=== PATIENT | female | born 1975 | race Caucasian/White ===

== ENCOUNTER 2016-11-18 23:26 | Emergency (ER) | payer MEDICAID ==
[2016-11-18] MEDS ORDERED: Ketorolac 30 MG/ML SDV IVPUSH ONE (23:37)
[2016-11-18] MEDS ORDERED: Ondansetron 4 MG/2 ML SDV IVPUSH ONE (23:46)
[2016-11-18] MEDS ORDERED: Sodium Chloride 0.9% 1,000 ML IV ONE (23:46)
[2016-11-18] MEDS ORDERED: LORazepam 2 MG/ML MDV IVPUSH ONE (23:54)
[2016-11-19 00:27] LABS: CHLORIDE,CL 106 mmol/L (98-110); SODIUM,NA 139 mmol/L (136-146)
--- NOTE | 2016-11-19 01:53 | EDM.PDOC ---
ED HPI GENERAL MEDICAL PROBLEM - General Chief Complaint: Flank Pain Stated Complaint: PT LT SIDE HURT AND VOMITING Time Seen by Provider: 11/18/16 23:35 Source of Information: Reports: Patient History Limitations: Reports: No Limitations - History of Present Illness INITIAL COMMENTS - FREE TEXT/NARRATIVE: HISTORY AND PHYSICAL: History of present illness: 40-year-old female with no prior history of kidney stones now presents to the emergency department complaining of sudden onset of severe left flank pain tonight. Patient was feeling fine less than which went to bed. She woke with severe left flank discomfort. She has nonominal or pelvic pain. No vaginal discharge or bleeding. Denies possibility of . No fevers chills sweats or shaking chills. Pain comes and goes sometimes is very severe. No position helps it or makes it worse. Review of systems: As per history of present illness and below otherwise all systems reviewed and negative. Past medical history: As per history of present illness and as reviewed below otherwise noncontributory. Surgical history: As per history of present illness and as reviewed below otherwise noncontributory. Social history: No reported history of drug or alcohol abuse. Family history: As per history of present illness and as reviewed below otherwise noncontributory. Physical exam: HEENT: Atraumatic, normocephalic, pupils reactive, negative for conjunctival pallor or scleral icterus, mucous membranes moist, throat clear, neck supple, nontender, trachea midline. Lungs: Clear to auscultation, breath sounds equal bilaterally, chest nontender. Heart: S1S2, regular, negative for clicks, rubs, or JVD. Abdomen: Soft, nondistended, nontender. Negative for masses or hepatosplenomegaly. positive left sidedcostovertebral tenderness.right CVA nontender 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: Deferred. Rectal: Deferred. Extremities: Atraumatic, negative for cords or calf pain. Neurovascular unremarkable. Neuro: Awake, alert, oriented. Cranial nerves II through XII unremarkable. Cerebellum unremarkable. Motor and sensory unremarkable throughout. Exam nonfocal. Diagnostics: [CT with stone left mid ureter mild hydro-. Labs with no evidence of Elisa infection Therapeutics: [] Impression: [] Plan: [signs and symptoms consistent with ureteral colic confirmed by CT. Labs unremarkable. Patient comfortable on reevaluation prior to discharge. No further workup or treatment indicated. Patient and agree with outpatient follow-up with urology. Patient is aware that this could possibly the stone will not pass spontaneously and may require urologic intervention. Her at length the potential, if she is noncompliant and does not follow-up, for loss of kidney function up to and including devitalization and lossof her left kidney from chronic hydro. strict return precautions given] Definitive disposition and diagnosis as appropriate pending reevaluation and review of above. left flank area Pain Score (Numeric/FACES): 10 - Related Data Allergies Allergy/AdvReac Type Severity Reaction Status Date / Time No Known Allergies Allergy Verified 11/18/16 23:35 Home Meds: Home Meds Tamsulosin HCl [Flomax] 0.4 mg PO DAILY #10 cap.er.24h 11/19/16 [Rx] Past Medical History HEENT History: Reports: None Cardiovascular History: Reports: None Respiratory History: Reports: None Gastrointestinal History: Reports: None 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 History: Reports: None H[employer] History: Reports: Musculoskeletal History: Reports: None Neurological History: Reports: None Psychiatric History: Reports: None Endocrine/Metabolic History: Reports: Diabetes, Type II Hematologic History: Reports: None Immunologic History: Reports: None Oncologic (Cancer) History: Reports: None Dermatologic History: Reports: None - Infectious Disease History Infectious Disease History: Reports: None Social & Family History - Family History Family Medical History: Noncontributory - Tobacco Use Smoking Status *Q: Never Smoker - Caffeine Use Caffeine Use: Reports: Soda - Recreational Drug Use Recreational Drug Use: No ED ROS GENERAL - Review of Systems Review Of Systems: See Below (history of present illness) ED EXAM, GENERAL - Physical Exam Exam: See Below (history of present illness) Course - Vital Signs Last Recorded V/S: Last Vital Signs Temp 36.2 C 11/19/16 02:24 Pulse 60 11/19/16 02:24 Resp 18 11/19/16 02:24 BP 100/60 11/19/16 02:24 Pulse Ox 97 11/19/16 02:24 - Orders/Labs/Meds Orders: Active Orders 24 hr Category Date Time Status Abdomen Pelvis wo Cont [CT] Stat Exams 11/18/16 23:37 Ordered Labs: Laboratory Tests 11/18/16 11/18/16 11/18/16 Range/Units 23:46 23:46 23:46 WBC 10.09 (4.0-11.0) K/uL RBC 4.56 (4.30-5.90) M/uL Hgb 13.2 (12.0-16.0) g/dL Hct 39.1 (36.0-46.0) % MCV 85.7 (80.0-98.0) fL MCH 28.9 (27.0-32.0) pg MCHC 33.8 (31.0-37.0) g/dL RDW Std Deviation 39.2 (28.0-62.0) fl RDW Coeff of Ibeth 13 (11.0-15.0) % Plt Count 274 (150-400) K/uL MPV 10.20 (7.40-12.00) fL Neut % (Auto) 58.1 (48.0-80.0) % Lymph % (Auto) 33.0 (16.0-40.0) % [place] % (Auto) 6.3 (0.0-15.0) % Eos % (Auto) 2.3 (0.0-7.0) % Baso % (Auto) 0.3 (0.0-1.5) % Neut # (Auto) 5.9 H (1.4-5.7) K/uL Lymph # (Auto) 3.3 H (0.6-2.4) K/uL [place] # (Auto) 0.6 (0.0-0.8) K/uL Eos # (Auto) 0.2 (0.0-0.7) K/uL Baso # (Auto) 0.0 (0.0-0.1) K/uL Nucleated RBC % 0.0 /100WBC Nucleated RBCs # 0 K/uL Sodium 139 (136-146) mmol/L Potassium 3.8 (3.5-5.1) mmol/L Chloride 106 (98-110) mmol/L Carbon Dioxide 23 (21-31) mmol/L BUN 10 (6.0-23.0) mg/dL Creatinine 1.0 (0.6-1.5) mg/dL Est Cr Clr Drug Dosing 63.28 mL/min Estimated GFR (MDRD) > 60.0 ml/min Glucose 123 H (60-110) mg/dL Calcium 9.5 (8.8-10.8) mg/dL Total Bilirubin 0.4 (0.1-1.5) mg/dL AST 20 (5-40) IU/L ALT 21 (8-54) IU/L Alkaline Phosphatase 75 (40-150) Total Protein 7.6 (6.0-8.0) g/dL Albumin 3.9 (3.5-5.0) g/dL Globulin 3.7 H (2.0-3.5) g/dL Albumin/Globulin Ratio 1.1 L (1.3-2.8) Lipase 17 (7-80) U/L HCG, Qual (NEG) Urine Color Urine Appearance Urine pH (5.0-8.0) Ur Specific [place] (1.001-1.035) Urine Protein (NEGATIVE) mg/dL Urine Glucose (UA) (NEGATIVE) mg/dL Urine Ketones (NEGATIVE) mg/dL Urine Occult Blood (NEGATIVE) Urine Nitrite (NEGATIVE) Urine Bilirubin (NEGATIVE) Urine Urobilinogen (<2.0) EU/dL Ur Leukocyte Esterase (NEGATIVE) Urine RBC (0-2/HPF) Urine WBC (0-5/HPF) Ur Epithelial Cells (NONE-FEW) Urine Bacteria (NEGATIVE) Urine Mucus (NONE-MOD) 11/18/16 11/19/16 Range/Units 23:46 01:55 WBC (4.0-11.0) K/uL RBC (4.30-5.90) M/uL Hgb (12.0-16.0) g/dL Hct (36.0-46.0) % MCV (80.0-98.0) fL MCH (27.0-32.0) pg MCHC (31.0-37.0) g/dL RDW Std Deviation (28.0-62.0) fl RDW Coeff of Ibeth (11.0-15.0) % Plt Count (150-400) K/uL MPV (7.40-12.00) fL Neut % (Auto) (48.0-80.0) % Lymph % (Auto) (16.0-40.0) % [place] % (Auto) (0.0-15.0) % Eos % (Auto) (0.0-7.0) % Baso % (Auto) (0.0-1.5) % Neut # (Auto) (1.4-5.7) K/uL Lymph # (Auto) (0.6-2.4) K/uL [place] # (Auto) (0.0-0.8) K/uL Eos # (Auto) (0.0-0.7) K/uL Baso # (Auto) (0.0-0.1) K/uL Nucleated RBC % /100WBC Nucleated RBCs # K/uL Sodium (136-146) mmol/L Potassium (3.5-5.1) mmol/L Chloride (98-110) mmol/L Carbon Dioxide (21-31) mmol/L BUN (6.0-23.0) mg/dL Creatinine (0.6-1.5) mg/dL Est Cr Clr Drug Dosing mL/min Estimated GFR (MDRD) ml/min Glucose (60-110) mg/dL Calcium (8.8-10.8) mg/dL Total Bilirubin (0.1-1.5) mg/dL AST (5-40) IU/L ALT (8-54) IU/L Alkaline Phosphatase (40-150) Total Protein (6.0-8.0) g/dL Albumin (3.5-5.0) g/dL Globulin (2.0-3.5) g/dL Albumin/Globulin Ratio (1.3-2.8) Lipase (7-80) U/L HCG, Qual NEGATIVE (NEG) Urine Color YELLOW Urine Appearance CLEAR Urine pH 6.0 (5.0-8.0) Ur Specific [place] 1.020 (1.001-1.035) Urine Protein TRACE (NEGATIVE) mg/dL Urine Glucose (UA) NEGATIVE (NEGATIVE) mg/dL Urine Ketones NEGATIVE (NEGATIVE) mg/dL Urine Occult Blood LARGE H (NEGATIVE) Urine Nitrite NEGATIVE (NEGATIVE) Urine Bilirubin NEGATIVE (NEGATIVE) Urine Urobilinogen 0.2 (<2.0) EU/dL Ur Leukocyte Esterase MODERATE (NEGATIVE) Urine RBC 16-20 (0-2/HPF) Urine WBC 2-4 (0-5/HPF) Ur Epithelial Cells RARE (NONE-FEW) Urine Bacteria RARE (NEGATIVE) Urine Mucus LIGHT (NONE-MOD) Meds: Medications Discontinued Medications Generic Name Dose Route Start Last Admin Trade Name Freq PRN Reason Stop Dose Admin Sodium Chloride 1,000 mls @ 999 mls/hr 11/18/16 23:46 11/18/16 23:50 Normal Saline IV 11/19/16 00:46 999 mls/hr .Bolus ONE Administration Ketorolac Tromethamine 30 mg 11/18/16 23:37 11/18/16 23:52 Toradol IVPUSH 11/18/16 23:38 30 mg ONETIME ONE Administration Lorazepam 1 mg 11/18/16 23:54 11/19/16 00:04 Ativan IVPUSH 11/18/16 23:55 1 mg ONETIME ONE Administration Ondansetron HCl 4 mg 11/18/16 23:46 11/18/16 23:50 Zofran IVPUSH 11/18/16 23:47 4 mg ONETIME ONE Administration Departure - Departure Time of Disposition: 02:30 Disposition: Home, Self-Care 01 Clinical Impression: Ureterolithiasis, Ureteric colic - Discharge Information Prescriptions: Tamsulosin HCl [Flomax] 0.4 mg PO DAILY #10 cap.er.24h Instructions: Kidney Stones, Bnmf-hi-Selt Referrals: PCP,None [Primary Care Provider] - Forms: ED Department Discharge - My Orders Last 24 Hours: My Active Orders 11/18/16 23:37 Abdomen Pelvis wo Cont [CT] Stat - Assessment/Plan Last 24 Hours: My Active Orders 11/18/16 23:37 Abdomen Pelvis wo Cont [CT] Stat
[2016-11-19 02:25] VITALS: BP 100/60
--- NOTE | 2016-11-19 19:19 | CT ---
EXAM DATE: 11/18/16 PATIENT'S AGE: 40 Patient: MONIKA VELA Facility: [place], [place] Site . Site : 1975 Study: CT Abdomen/Pelvis [id number]/[id number] 1:07:10 AM Ordering Physician: tavo Final Report: : INDICATION: left flank pain CT ABDOMEN AND PELVIS WITHOUT CONTRAST TECHNIQUE: Multidetector CT imaging was performed through the abdomen and pelvis without intravenous contrast administration. Coronal and sagittal reconstructions were generated. COMPARISON: None. FINDINGS: Lower chest: Lung bases are clear. Liver: Within normal limits. Gallbladder and bile ducts: 2.3 centimeter calcified gallstone within the gallbladder fundus. No findings to suggest cholecystitis. No biliary dilation identified. Pancreas: Unremarkable. Spleen: Normal. Adrenals: No nodules or masses. Kidneys, ureters, and urinary bladder: 6 x 3 x 4 millimeter stone in the mid to distal portion of the left ureter at the level of the sacral promontory approximately 7 centimeters above the ureterovesical junction, producing mild dilation of the proximal left ureter and mild left hydronephrosis. A few small nonobstructing right intrarenal stones are also noted. No bladder mass or definite wall thickening. Gastrointestinal tract: Normal caliber bowel without wall thickening. The appendix is normal. Vascular structures: Normal for age. Peritoneum: No free air, abscess, or significant free fluid. Lymph nodes: No pathologically enlarged nodes identified. Reproductive organs: Borderline uterine enlargement, possibly reflecting the presence of fibroids; consider followup pelvic ultrasound. Bones: Normal for age. IMPRESSION: 1. Obstructing 6 x 3 x 4 millimeter stone in the mid to distal left ureter producing mild left hydroureteronephrosis. 2. Small nonobstructing right intrarenal stones. 3. Nonacute additional findings as detailed above. AYSE HOANG MD [facility] [employer] Dictated by Gael Hoang MD @ 11/19/2016 1:14:53 AM Dictated by: Gael Hoang MD @ 11/19/2016 01:15:04 (Electronic Signature) Report Signed by Proxy. GARNET HEALTHPriscila
== END 2016-11-19 02:24 | disposition home or self-care (01) ==
LOC: MW.ED 23:26
DX: N13.2 Hydronephrosis with renal and ureteral calculous obstruction (principal); E11.9 Type 2 diabetes mellitus without complications
CPT/HCPCS: 36415; 74176; 80053; 81001; 83690; 84703; 85025; 96361; 96374; 96375; 99284; J1885; J2060; J2405; J7040

== ENCOUNTER 2016-11-26 07:39 | Day surgery (SDC) | payer MEDICAID ==
[~2016-11-26 07:39] MED LIST: Iopamidol 408 MG/ML 50 ML SDV ONE; Lactated Ringers 1,000 ML IV SCH; ceFAZolin 1 GM in Premix Bag 1 BAG IV ONE
[2016-11-26] MEDS ORDERED: Propofol 200 MG/20 ML SDV ONE (07:40)
[2016-11-26] MEDS ORDERED: fentaNYL 100 MCG/2 ML SDV ONE ×2 (07:41→09:58)
[2016-11-26] MEDS ORDERED: Midazolam 1 MG/ML 2 ML SDV ONE (07:41)
[2016-11-26] MEDS ORDERED: ceFAZolin 1 GM Vial ONE (07:42)
[2016-11-26] MEDS ORDERED: Neostigmine Methylsulfate 1 MG/ML 5 ML Syringe ONE (07:42)
[2016-11-26] MEDS ORDERED: Dexamethasone 4 MG/ML 5 ML MDV ONE (07:42)
[2016-11-26] MEDS ORDERED: Rocuronium 10 MG/ML 10 ML Syringe ONE (07:42)
[2016-11-26] MEDS ORDERED: Ondansetron 4 MG/2 ML SDV ONE (07:42)
--- NOTE | 2016-11-26 08:34 | PCM.PREANE ---
Preanesthetic Assessment - Anesthesia/Transfusion/Family Hx Anesthesia History: No Prior Anesthesia Family History of Anesthesia Reaction: No Transfusion History: No Prior Transfusion(s) - Review of Systems General: No Symptoms Pulmonary: No Symptoms Cardiovascular: No Symptoms Gastrointestinal: No Symptoms Neurological: No Symptoms Other: Reports: None - Physical Assessment NPO Status Date: 11/25/16 NPO Status Time: 22:30 O2 Sat by Pulse Oximetry: 98 Respiratory Rate: 16 Vital Signs: Last Vital Signs Temp 36.6 C 11/26/16 07:45 Pulse 68 11/26/16 07:45 Resp 16 11/26/16 07:45 BP 113/71 11/26/16 07:45 Pulse Ox 98 11/26/16 07:45 Height: 1.63 m Weight: 87.997 kg ASA Class: 2 Mental Status: Alert & Oriented x3 Airway Class: Mallampati = 2 Dentition: Reports: Broken Tooth/Teeth, Caries ROM/Head Extension: Full Lungs: Clear to Auscultation, Normal Respiratory Effort Cardiovascular: Regular Rate, Regular Rhythm - Allergies Allergies/Adverse Reactions: Allergies Allergy/AdvReac Type Severity Reaction Status Date / Time No Known Allergies Allergy Verified 11/18/16 23:35 - Anesthesia Plan Pre-Op Medication Ordered: None - Acknowledgements Anesthesia Type Planned: General Anesthesia Pt an Appropriate Candidate for the Planned Anesthesia: Yes Alternatives and Risks of Anesthesia Discussed w Pt/Guardian: Yes Pt/Guardian Understands and Agrees with Anesthesia Plan: Yes PreAnesthesia Questionnaire HEENT History: Reports: None Cardiovascular History: Reports: None Respiratory History: Reports: None Gastrointestinal History: Reports: Cholelithiasis 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 History: Reports: Renal Calculus 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 History: currently [employer] History: Reports: Musculoskeletal History: Reports: None Neurological History: Reports: Migraines Psychiatric History: Reports: None Endocrine/Metabolic History: Reports: Diabetes, Type II Hematologic History: Reports: None Immunologic History: Reports: None Oncologic (Cancer) History: Reports: None Dermatologic History: Reports: None - Infectious Disease History Infectious Disease History: Reports: None - Past Surgical History GI Surgical History: Reports: None Female Surgical History: Reports: None - SUBSTANCE USE Smoking Status *Q: Never Smoker Recreational Drug Use History: No - HOME MEDS Home Medications: Home Meds Tamsulosin HCl [Flomax] 0.4 mg PO DAILY #10 cap.er.24h 11/19/16 [Rx] Acetaminophen with Codeine [Tylenol with Codeine #3 Tablet] 1 tab PO Q6H PRN 02/01 [History] Acetaminophen/HYDROcodone [[place] 325-5 MG] 1 tab PO ASDIRECTED PRN 11/25/16 [ History] Metoclopramide [Reglan] 10 mg PO ASDIRECTED PRN 11/25/16 [History] Norethindrone-E.estradiol-Iron [Junel Fe 1 MG-20 MCG] 1 tab PO ASDIRECTED [History] SUMAtriptan Succinate [Imitrex] 100 mg PO ASDIRECTED PRN 11/25/16 [History] metFORMIN HCl [Metformin HCl] 1,000 mg PO BID 11/25/16 [History] metroNIDAZOLE [Flagyl] 500 mg PO ASDIRECTED 11/25/16 [History] - CURRENT (IN HOUSE) MEDS Current Meds: Current Medications Lactated Ringer's (Ringers, Lactated) 1,000 mls @ 100 mls/hr IV ASDIRECTED STEPHANIE Last Admin: 11/26/16 08:03 Dose: 100 mls/hr Discontinued Medications Cefazolin Sodium (Ancef) Confirm Administered Dose 1 gm .ROUTE .STK-MED ONE Stop: 11/26/16 07:43 Dexamethasone (Dexamethasone) Confirm Administered Dose 20 mg .ROUTE .STK-MED ONE Stop: 11/26/16 07:43 Fentanyl (Sublimaze) Confirm Administered Dose 100 mcg .ROUTE .STK-MED ONE Stop: 11/26/16 07:42 Glycopyrrolate () Confirm Administered Dose 1 mg .ROUTE .STK-MED ONE Stop: 11/26/16 07:43 Cefazolin Sodium/Dextrose 1 gm (/ Premix) 50 mls @ 100 mls/hr IV ONCALL ONE Stop: 11/26/16 07:29 Iopamidol (Isovue-200 (41%)) Confirm Administered Dose 50 ml .ROUTE .STK-MED ONE Stop: 11/26/16 07:31 Lidocaine HCl (Xylocaine-Mpf 1%) Confirm Administered Dose 5 ml .ROUTE .STK-MED ONE Stop: 11/26/16 07:43 Midazolam HCl (Versed 1 Mg/Ml) Confirm Administered Dose 2 mg .ROUTE .STK-MED ONE Stop: 11/26/16 07:42 Neostigmine Methylsulfate (Neostigmine) Confirm Administered Dose 5 mg .ROUTE .STK-MED ONE Stop: 11/26/16 07:43 Ondansetron HCl (Zofran) Confirm Administered Dose 4 mg .ROUTE .STK-MED ONE Stop: 11/26/16 07:43 Propofol (Diprivan 20 Ml) Confirm Administered Dose 200 mg .ROUTE .STK-MED ONE Stop: 11/26/16 07:41 Rocuronium [place] (Zemuron) Confirm Administered Dose 100 mg .ROUTE .STK-MED ONE Stop: 11/26/16 07:43
[2016-11-26] MEDS ORDERED: Ketorolac 30 MG/ML SDV ONE (09:37)
--- NOTE | 2016-11-26 10:40 | OR ---
SURGEON: Oren Fernandez M.D. DATE OF PROCEDURE: 11/26/2016 PREOPERATIVE DIAGNOSIS: Left lower ureteral stone, 6 mm. POSTOPERATIVE DIAGNOSIS: Left lower ureteral stone, 6 mm. OPERATION: Ureteroscopy, laser lithotripsy, and stent placement. DESCRIPTION OF PROCEDURE: The patient was given general anesthesia, placed in dorsal lithotomy position, prepped and draped in sterile drapes. Cystourethroscopy was done that was normal. She had a grade 1 cystocele. The inside of the bladder was normal. A guidewire was advanced in the left ureter alongside the stone all the way up into the renal pelvis. Lower ureter was then dilated using the UroMax II balloon dilator to approximately 15-Stateless. The rigid Storz ureteroscope was advanced in the left lower ureter. The stone was visualized and dusted into a smaller size that was eventually removed with a grasper using the laser. With that done, the procedure was done. A 6-Stateless 26 cm double-J stent was advanced over the guidewire all the way up into the renal pelvis. Position was confirmed under fluoroscopy, the bladder was emptied, and the string at the end of the stent was taped to the outside to the inside of the left thigh. The patient tolerated the procedure well and was moved to recovery room in good condition. I will be seeing her in the office in 10 days to remove the stent. KATTY / MICHAEL /[id number]
[2016-11-26 11:46] VITALS: BP 150/82
--- NOTE | 2016-11-26 12:55 | CR ---
Procedure all fluoroscopy 21.4 seconds of fluoroscopy time was used for ureteroscopy and laser procedure. Impression: Procedural fluoroscopy as above
--- NOTE | 2016-11-26 14:00 | PCM.POSTAN ---
POST ANESTHESIA ASSESSMENT - MENTAL STATUS Mental Status: Alert, Oriented - RESPIRATORY Respiratory Status: Respiratory Rate WNL, Airway Patent, O2 Saturation Stable - CARDIOVASCULAR CV Status: Pulse Rate WNL, Blood Pressure Stable - GASTROINTESTINAL GI Status: No Symptoms - POST OP HYDRATION Hydration Status: Adequate & Stable
--- NOTE | 2016-11-26 14:01 | PCM48HPAN ---
Post Anesthesia Note - EVALUATION WITHIN 48HRS OF ANESTHETIC Vital Signs in Normal Range: Yes Patient Participated in Evaluation: Yes Respiratory Function Stable: Yes Airway Patent: Yes Cardiovascular Function Stable: Yes Hydration Status Stable: Yes Pain Control Satisfactory: Yes Nausea and Vomiting Control Satisfactory: Yes Mental Status Recovered: Yes
== END 2016-11-26 11:40 | disposition home or self-care (01) ==
LOC: MW.SDS 07:39
PROVIDERS: ATTEND Urology
PROC: 0TF78ZZ Fragmentation in Left Ureter, Via Natural or Artificial Opening Endoscopic (ICD-10-PCS; principal; 2016-11-26)
PROC: 0T778DZ Dilation of Left Ureter with Intraluminal Device, Via Natural or Artificial Opening Endoscopic (ICD-10-PCS; 2016-11-26)
DX: N20.1 Calculus of ureter (principal); E11.9 Type 2 diabetes mellitus without complications; G43.909 Migraine, unspecified, not intractable, without status migrainosus; Z87.442 Personal history of urinary calculi; Z79.84 Long term (current) use of oral hypoglycemic drugs; Z79.899 Other long term (current) drug therapy
CPT/HCPCS: 36415; 52356; 76000; 84703; J0690; J1100; J1885; J2250; J2405; J3010; J7120; Q9966; 00873; 82962; 88300; C1769; C2625; J2704

== ENCOUNTER 2016-11-26 23:49 | Emergency (ER) | payer MEDICAID ==
[2016-11-27] MEDS ORDERED: Sodium Chloride 0.9% 1,000 ML IV ONE ×2 (00:06→01:45)
[2016-11-27] MEDS ORDERED: Ketorolac 30 MG/ML SDV IVPUSH ONE (00:06)
[2016-11-27] MEDS ORDERED: Ondansetron 4 MG/2 ML SDV IVPUSH ONE (00:06)
--- NOTE | 2016-11-27 00:15 | EDM.PDOC ---
ED HPI GENERAL MEDICAL PROBLEM - General Chief Complaint: Abdominal Pain Stated Complaint: POST OP PAIN Time Seen by Provider: 11/27/16 00:15 Source of Information: Reports: Patient - History of Present Illness INITIAL COMMENTS - FREE TEXT/NARRATIVE: HISTORY AND PHYSICAL: History of present illness: []Patient was in for lithotripsy with Dr. Alcantar today, she complains of low back pain and dysuria, she taken hydrocodone at home as well as multilevel Tylenol No. 3 is without benefit I can reproduce pain on exam with palpation of left paraspinous muscle lumbar distribution no vertebral point tenderness no CVA tenderness No fever nausea vomiting chills sweats no chest pain shortness breath headache dizziness palpitation no bowel or urine symptoms no actual abdominal pain Review of systems: As per history of present illness and below otherwise all systems reviewed and negative. Past medical history: As per history of present illness and as reviewed below otherwise noncontributory. Surgical history: As per history of present illness and as reviewed below otherwise noncontributory. Social history: No reported history of drug or alcohol abuse. Family history: As per history of present illness and as reviewed below otherwise noncontributory. Physical exam: HEENT: Atraumatic, normocephalic, pupils reactive, negative for conjunctival pallor or scleral icterus, mucous membranes moist, throat clear, neck supple, nontender, trachea midline. Lungs: Clear to auscultation, breath sounds equal bilaterally, chest nontender. Heart: S1S2, regular, negative for clicks, rubs, or JVD. Abdomen: Soft, nondistended, nontender. Negative for masses or hepatosplenomegaly. Negative for costovertebral tenderness. Pelvis: Stable nontender. 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: Deferred. Rectal: Deferred. Extremities: Atraumatic, negative for cords or calf pain. Neurovascular unremarkable. Neuro: Awake, alert, oriented. Cranial nerves II through XII unremarkable. Cerebellum unremarkable. Motor and sensory unremarkable throughout. Exam nonfocal. Diagnostics: []Lab as below Therapeutics: []2 L normal saline bolus Toradol 30 mg IV Impression: []Paraspinous muscle spasm Post lithotripsy and stent placement on left 24 hours prior Dysuria Definitive disposition and diagnosis as appropriate pending reevaluation and review of above. back pain Pain Score (Numeric/FACES): 10 - Related Data Allergies Allergy/AdvReac Type Severity Reaction Status Date / Time No Known Allergies Allergy Verified 11/27/16 00:09 Home Meds: Home Meds Tamsulosin HCl [Flomax] 0.4 mg PO DAILY #10 cap.er.24h 11/19/16 [Rx] Acetaminophen with Codeine [Tylenol with Codeine #3 Tablet] 1 tab PO Q6H PRN 02/01 [History] Acetaminophen/HYDROcodone [Brooks 325-5 MG] 1 tab PO ASDIRECTED PRN 11/25/16 [ History] Metoclopramide [Reglan] 10 mg PO ASDIRECTED PRN 11/25/16 [History] Norethindrone-E.estradiol-Iron [Junel Fe 1 MG-20 MCG] 1 tab PO ASDIRECTED [History] SUMAtriptan Succinate [Imitrex] 100 mg PO ASDIRECTED PRN 11/25/16 [History] metFORMIN HCl [Metformin HCl] 1,000 mg PO BID 11/25/16 [History] metroNIDAZOLE [Flagyl] 500 mg PO ASDIRECTED 11/25/16 [History] Past Medical History HEENT History: Reports: None Cardiovascular History: Reports: None Respiratory History: Reports: None Gastrointestinal History: Reports: Cholelithiasis 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 History: Reports: Renal Calculus 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: Musculoskeletal History: Reports: None Neurological History: Reports: Migraines Psychiatric History: Reports: None Endocrine/Metabolic History: Reports: Diabetes, Type II Hematologic History: Reports: None Immunologic History: Reports: None Oncologic (Cancer) History: Reports: None Dermatologic History: Reports: None - Infectious Disease History Infectious Disease History: Reports: None - Past Surgical History GI Surgical History: Reports: None Female Surgical History: Reports: None Social & Family History - Family History Family Medical History: Noncontributory - Tobacco Use Smoking Status *Q: Never Smoker - Caffeine Use Caffeine Use: Reports: None, Soda - Recreational Drug Use Recreational Drug Use: No Drug Use in Last 12 Months: No ED ROS GENERAL - Review of Systems Review Of Systems: ROS reveals no pertinent complaints other than HPI. ED EXAM, GENERAL - Physical Exam Exam: See Below Course - Vital Signs Last Recorded V/S: Last Vital Signs Temp 36.4 C 11/27/16 00:09 Pulse 72 11/27/16 01:55 Resp 14 11/27/16 01:55 BP 126/71 11/27/16 01:55 Pulse Ox 99 11/27/16 01:55 - Orders/Labs/Meds Orders: Active Orders 24 hr Category Date Time Status CULTURE URINE [RM] Stat Lab 11/27/16 03:18 Uncollected Labs: Laboratory Tests 11/27/16 11/27/16 11/27/16 Range/Units 00:55 00:55 00:55 WBC 14.70 H (4.0-11.0) K/uL RBC 4.79 (4.30-5.90) M/uL Hgb 14.2 (12.0-16.0) g/dL Hct 41.3 (36.0-46.0) % MCV 86.2 (80.0-98.0) fL MCH 29.6 (27.0-32.0) pg MCHC 34.4 (31.0-37.0) g/dL RDW Std Deviation 40.1 (28.0-62.0) fl RDW Coeff of Ibeth 13 (11.0-15.0) % Plt Count 326 (150-400) K/uL MPV 10.50 (7.40-12.00) fL Neut % (Auto) 81.0 H (48.0-80.0) % Lymph % (Auto) 14.3 L (16.0-40.0) % [place] % (Auto) 4.6 (0.0-15.0) % Eos % (Auto) 0.0 (0.0-7.0) % Baso % (Auto) 0.1 (0.0-1.5) % Neut # (Auto) 11.9 H (1.4-5.7) K/uL Lymph # (Auto) 2.1 (0.6-2.4) K/uL [place] # (Auto) 0.7 (0.0-0.8) K/uL Eos # (Auto) 0.0 (0.0-0.7) K/uL Baso # (Auto) 0.0 (0.0-0.1) K/uL Nucleated RBC % 0.0 /100WBC Nucleated RBCs # 0 K/uL Sodium 138 (136-146) mmol/L Potassium 4.4 (3.5-5.1) mmol/L Chloride 105 (98-110) mmol/L Carbon Dioxide 22 (21-31) mmol/L BUN 8 (6.0-23.0) mg/dL Creatinine 0.8 (0.6-1.5) mg/dL Est Cr Clr Drug Dosing 79.11 mL/min Estimated GFR (MDRD) > 60.0 ml/min Glucose 143 H (60-110) mg/dL Calcium 9.3 (8.8-10.8) mg/dL Total Bilirubin 0.5 (0.1-1.5) mg/dL AST 23 (5-40) IU/L ALT 25 (8-54) IU/L Alkaline Phosphatase 80 (40-150) Troponin I < 0.10 (0.0-0.29) NG/ML Total Protein 7.8 (6.0-8.0) g/dL Albumin 4.0 (3.5-5.0) g/dL Globulin 3.8 H (2.0-3.5) g/dL Albumin/Globulin Ratio 1.1 L (1.3-2.8) Amylase 38 (10-90) U/L Lipase 10 (7-80) U/L Urine Color Urine Appearance Urine pH (5.0-8.0) Ur Specific [place] (1.001-1.035) Urine Protein (NEGATIVE) mg/dL Urine Glucose (UA) (NEGATIVE) mg/dL Urine Ketones (NEGATIVE) mg/dL Urine Occult Blood (NEGATIVE) Urine Nitrite (NEGATIVE) Urine Bilirubin (NEGATIVE) Urine Urobilinogen (<2.0) EU/dL Ur Leukocyte Esterase (NEGATIVE) Urine RBC (0-2/HPF) Urine WBC (0-5/HPF) Ur Epithelial Cells (NONE-FEW) Urine Bacteria (NEGATIVE) Urine Mucus (NONE-MOD) 11/27/16 Range/Units 02:40 WBC (4.0-11.0) K/uL RBC (4.30-5.90) M/uL Hgb (12.0-16.0) g/dL Hct (36.0-46.0) % MCV (80.0-98.0) fL MCH (27.0-32.0) pg MCHC (31.0-37.0) g/dL RDW Std Deviation (28.0-62.0) fl RDW Coeff of Ibeth (11.0-15.0) % Plt Count (150-400) K/uL MPV (7.40-12.00) fL Neut % (Auto) (48.0-80.0) % Lymph % (Auto) (16.0-40.0) % [place] % (Auto) (0.0-15.0) % Eos % (Auto) (0.0-7.0) % Baso % (Auto) (0.0-1.5) % Neut # (Auto) (1.4-5.7) K/uL Lymph # (Auto) (0.6-2.4) K/uL [place] # (Auto) (0.0-0.8) K/uL Eos # (Auto) (0.0-0.7) K/uL Baso # (Auto) (0.0-0.1) K/uL Nucleated RBC % /100WBC Nucleated RBCs # K/uL Sodium (136-146) mmol/L Potassium (3.5-5.1) mmol/L Chloride (98-110) mmol/L Carbon Dioxide (21-31) mmol/L BUN (6.0-23.0) mg/dL Creatinine (0.6-1.5) mg/dL Est Cr Clr Drug Dosing mL/min Estimated GFR (MDRD) ml/min Glucose (60-110) mg/dL Calcium (8.8-10.8) mg/dL Total Bilirubin (0.1-1.5) mg/dL AST (5-40) IU/L ALT (8-54) IU/L Alkaline Phosphatase (40-150) Troponin I (0.0-0.29) NG/ML Total Protein (6.0-8.0) g/dL Albumin (3.5-5.0) g/dL Globulin (2.0-3.5) g/dL Albumin/Globulin Ratio (1.3-2.8) Amylase (10-90) U/L Lipase (7-80) U/L Urine Color YELLOW Urine Appearance SLT CLOUDY Urine pH 6.5 (5.0-8.0) Ur Specific [place] 1.025 (1.001-1.035) Urine Protein 30 (NEGATIVE) mg/dL Urine Glucose (UA) NEGATIVE (NEGATIVE) mg/dL Urine Ketones NEGATIVE (NEGATIVE) mg/dL Urine Occult Blood LARGE H (NEGATIVE) Urine Nitrite NEGATIVE (NEGATIVE) Urine Bilirubin NEGATIVE (NEGATIVE) Urine Urobilinogen 0.2 (<2.0) EU/dL Ur Leukocyte Esterase SMALL (NEGATIVE) Urine RBC 250-300 (0-2/HPF) Urine WBC 4-12 (0-5/HPF) Ur Epithelial Cells OCCASIONAL (NONE-FEW) Urine Bacteria FEW (NEGATIVE) Urine Mucus FEW (NONE-MOD) Meds: Medications Discontinued Medications Generic Name Dose Route Start Last Admin Trade Name Freq PRN Reason Stop Dose Admin Sodium Chloride 1,000 mls @ 999 mls/hr 11/27/16 00:06 11/27/16 00:50 Normal Saline IV 11/27/16 01:06 999 mls/hr STAT ONE Administration Sodium Chloride 1,000 mls @ 999 mls/hr 11/27/16 01:45 11/27/16 01:56 Normal Saline IV 11/27/16 02:45 999 mls/hr STAT ONE Administration Ketorolac Tromethamine 30 mg 11/27/16 00:06 11/27/16 00:53 Toradol IVPUSH 11/27/16 00:07 30 mg ONETIME ONE Administration Ondansetron HCl 8 mg 11/27/16 00:06 11/27/16 00:51 Zofran IVPUSH 11/27/16 00:07 8 mg ONETIME ONE Administration Departure - Departure Time of Disposition: 03:19 Disposition: Home, Self-Care 01 Condition: Good Clinical Impression: Dysuria, Spasm of lumbar paraspinous muscle - Discharge Information Forms: ED Department Discharge Additional Instructions: Medication as prescribed Continue previous medications as directed Follow-up with Dr. Alcantar as scheduled sooner as needed Urine cultures pending at this time The following information is given to patients seen in the emergency department who are being discharged to home. This information is to outline your options for follow-up care. We provide all patients seen in our emergency department with a follow-up referral. The need for follow-up, as well as the timing and circumstances, are variable depending upon the specifics of your emergency department visit. If you don't have a primary care physician on staff, we will provide you with a referral. We always advise you to contact your personal physician following an emergency department visit to inform them of the circumstance of the visit and for follow-up with them and/or the need for any referrals to a consulting specialist. The emergency department will also refer you to a specialist when appropriate. This referral assures that you have the opportunity for follow-up care with a specialist. All of these measure are taken in an effort to provide you with optimal care, which includes your follow-up. Under all circumstances we always encourage you to contact your private physician who remains a resource for coordinating your care. When calling for follow-up care, please make the office aware that this follow-up is from your recent emergency room visit. If for any reason you are refused follow-up, please contact the [facility] emergency department at and asked to speak to the emergency department charge nurse. - My Orders Last 24 Hours: My Active Orders 11/27/16 03:18 CULTURE URINE [RM] Stat - Assessment/Plan Last 24 Hours: My Active Orders 11/27/16 03:18 CULTURE URINE [RM] Stat
[2016-11-27 01:23] LABS: CHLORIDE,CL 105 mmol/L (98-110); SODIUM,NA 138 mmol/L (136-146)
[2016-11-27 03:54] VITALS: BP 117/72
== END 2016-11-27 03:30 | disposition home or self-care (01) ==
LOC: MW.ED 23:49
DX: M62.830 Muscle spasm of back (principal); R30.0 Dysuria; E11.9 Type 2 diabetes mellitus without complications; G43.909 Migraine, unspecified, not intractable, without status migrainosus; Z79.84 Long term (current) use of oral hypoglycemic drugs; Z79.899 Other long term (current) drug therapy; Z87.442 Personal history of urinary calculi; Z98.890 Other specified postprocedural states
CPT/HCPCS: 80053; 81001; 82150; 83690; 84484; 85025; 87086; 96361; 96374; 96375; 99283; J1885; J2405; J7040

== ENCOUNTER 2017-02-01 08:18 | Day surgery (SDC) | payer MEDICAID ==
[~2017-02-01 08:18] MED LIST changes: -Iopamidol 408 MG/ML 50 ML SDV ONE; -ceFAZolin 1 GM in Premix Bag 1 BAG IV ONE
[2017-02-01] MEDS ORDERED: fentaNYL 100 MCG/2 ML SDV ONE (08:31)
[2017-02-01] MEDS ORDERED: Propofol 200 MG/20 ML SDV ONE (08:31)
[2017-02-01] MEDS ORDERED: Lidocaine 2% 5 ML SDV ONE (08:31)
[2017-02-01] MEDS ORDERED: Midazolam 1 MG/ML 2 ML SDV ONE (08:31)
[2017-02-01] MEDS ORDERED: Ondansetron 4 MG/2 ML SDV ONE (08:31)
[2017-02-01] MEDS ORDERED: Ferric Subsulfate Topical Soln 8 GM (8 ML) Bottle ONE (08:37)
[2017-02-01] MEDS ORDERED: Bupivacaine 0.25% 10 ML SDV ONE (08:37)
[2017-02-01] MEDS ORDERED: fentaNYL 100 MCG/2 ML SDV IVPUSH PRN (08:48)
[2017-02-01] MEDS ORDERED: Sodium Chloride 0.9% 10 ML Syringe FLUSH PRN (08:48)
[2017-02-01] MEDS ORDERED: Sodium Chloride 0.9% 2.5 ML Syringe FLUSH PRN (08:48)
--- NOTE | 2017-02-01 09:08 | PCM.PREANE ---
Preanesthetic Assessment - Anesthesia/Transfusion/Family Hx Anesthesia History: Prior Anesthesia Without Reaction Family History of Anesthesia Reaction: No Transfusion History: No Prior Transfusion(s) Intubation History: Unknown - Review of Systems General: No Symptoms Pulmonary: No Symptoms Cardiovascular: No Symptoms Gastrointestinal: No Symptoms Neurological: No Symptoms Other: Reports: None - Physical Assessment NPO Status Date: 01/31/17 NPO Status Time: 21:00 O2 Sat by Pulse Oximetry: 96 Respiratory Rate: 16 Vital Signs: Last Vital Signs Temp 36.3 C 02/01/17 08:27 Pulse 70 02/01/17 08:27 Resp 16 02/01/17 08:27 BP 118/66 02/01/17 08:27 Pulse Ox 96 02/01/17 08:27 Height: 1.63 m Weight: 84.368 kg ASA Class: 2 Mental Status: Alert & Oriented x3 Airway Class: Mallampati = 3 Dentition: Reports: Normal Dentition Thyro-Mental Finger Breadths: 3 Mouth Opening Finger Breadths: 3 (very narrow mouth) ROM/Head Extension: Full Lungs: Clear to Auscultation, Normal Respiratory Effort Cardiovascular: Regular Rate, Regular Rhythm - Lab Values: Laboratory Last Values WBC 9.49 K/uL (4.0-11.0) 01/31/17 14:34 RBC 4.97 M/uL (4.30-5.90) 01/31/17 14:34 Hgb 14.6 g/dL (12.0-16.0) 01/31/17 14:34 Hct 42.1 % (36.0-46.0) 01/31/17 14:34 MCV 84.7 fL (80.0-98.0) 01/31/17 14:34 MCH 29.4 pg (27.0-32.0) 01/31/17 14:34 MCHC 34.7 g/dL (31.0-37.0) 01/31/17 14:34 RDW Std Deviation 38.6 fl (28.0-62.0) 01/31/17 14:34 RDW Coeff of Ibeth 13 % (11.0-15.0) 01/31/17 14:34 Plt Count 254 K/uL (150-400) 01/31/17 14:34 MPV 10.10 fL (7.40-12.00) 01/31/17 14:34 Nucleated RBC % 0.0 /100WBC 01/31/17 14:34 Nucleated RBCs # 0 K/uL 01/31/17 14:34 POC Glucose 135 mg/dL (60-110) H 02/01/17 08:50 HCG, Qual NEGATIVE (NEG) 01/31/17 14:34 - Allergies Allergies/Adverse Reactions: Allergies Allergy/AdvReac Type Severity Reaction Status Date / Time No Known Allergies Allergy Verified 11/27/16 00:09 - Blood Blood Available: No - Anesthesia Plan Pre-Op Medication Ordered: None - Acknowledgements Anesthesia Type Planned: General Anesthesia Pt an Appropriate Candidate for the Planned Anesthesia: Yes Alternatives and Risks of Anesthesia Discussed w Pt/Guardian: Yes Pt/Guardian Understands and Agrees with Anesthesia Plan: Yes PreAnesthesia Questionnaire HEENT History: Reports: None Cardiovascular History: Reports: None, Other (See Below) (occasional spikes in BP) Respiratory History: Reports: None Gastrointestinal History: Reports: Cholelithiasis 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 History: Reports: Hydronephrosis, Renal Calculus 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, Musculoskeletal History: Reports: Other (See Below) Other Musculoskeletal History: occasional back pain Neurological History: Reports: Migraines Psychiatric History: Reports: None Endocrine/Metabolic History: Reports: Diabetes, Type II, Obesity/BMI 30+ Hematologic History: Reports: None Immunologic History: Reports: None Oncologic (Cancer) History: Reports: None Dermatologic History: Reports: None - Infectious Disease History Infectious Disease History: Reports: None - Past Surgical History Head Surgeries/Procedures: Reports: None GI Surgical History: Reports: None Female Surgical History: Reports: Lithotripsy/ESWL - SUBSTANCE USE Smoking Status *Q: Never Smoker Recreational Drug Use History: No - HOME MEDS Home Medications: Home Meds Acetaminophen with Codeine [Tylenol with Codeine #3 Tablet] 1 tab PO ASDIRECTED PRN 11/25/16 [History] Metoclopramide [Reglan] 5 mg PO ASDIRECTED PRN 11/25/16 [History] SUMAtriptan Succinate [Imitrex] 100 mg PO ASDIRECTED PRN 11/25/16 [History] Doxycycline Monohydrate 100 mg PO BID 01/27/17 [History] Ergocalciferol (Vitamin D2) [Vitamin D2] 1 tab PO ASDIRECTED 01/27/17 [History] metFORMIN HCl [Metformin HCl] 2 tab PO BID 01/27/17 [History] - CURRENT (IN HOUSE) MEDS Current Meds: Current Medications Fentanyl (Sublimaze) 50 mcg IVPUSH Q5M PRN PRN Reason: Pain (severe 7-10) Stop: 02/02/17 08:48 Lactated Ringer's (Ringers, Lactated) 1,000 mls @ 125 mls/hr IV ASDIRECTED STEPHANIE Last Admin: 02/01/17 08:45 Dose: 125 mls/hr Sodium Chloride (Saline Flush) 10 ml FLUSH ASDIRECTED PRN PRN Reason: Keep Vein Open Sodium Chloride (Saline Flush) 2.5 ml FLUSH ASDIRECTED PRN PRN Reason: Keep Vein Open Discontinued Medications Bupivacaine HCl (Sensorcaine-Mpf 0.25%) Confirm Administered Dose 20 ml .ROUTE .STK-MED ONE Stop: 02/01/17 08:38 Fentanyl (Sublimaze) Confirm Administered Dose 200 mcg .ROUTE .STK-MED ONE Stop: 02/01/17 08:32 Ferric Subsulfate (Astringyn) Confirm Administered Dose 8 gm .ROUTE .STK-MED ONE Stop: 02/01/17 08:38 Lidocaine (Xylocaine-Mpf 2%) Confirm Administered Dose 5 ml .ROUTE .STK-MED ONE Stop: 02/01/17 08:32 Midazolam HCl (Versed 1 Mg/Ml) Confirm Administered Dose 2 mg .ROUTE .STK-MED ONE Stop: 02/01/17 08:32 Ondansetron HCl (Zofran) Confirm Administered Dose 4 mg .ROUTE .STK-MED ONE Stop: 02/01/17 08:32 Propofol (Diprivan 20 Ml) Confirm Administered Dose 200 mg .ROUTE .STK-MED ONE Stop: 02/01/17 08:32
[2017-02-01] MEDS ORDERED: Rocuronium 10 MG/ML 10 ML Syringe ONE (10:50)
[2017-02-01] MEDS ORDERED: Succinylcholine/Normal Saline 200 MG/10 ML Syringe ONE (10:50)
[2017-02-01] MEDS ORDERED: ePHEDrine 50 MG/ML SDV ONE (11:05)
[2017-02-01] MEDS ORDERED: Ketorolac 30 MG/ML SDV ONE (12:20)
--- NOTE | 2017-02-01 13:05 | PCM.OPNOTE ---
<Maicol Lo - Last Filed: 02/01/17 13:47> - General Post-Op/Procedure Note Date of Surgery/Procedure: 02/01/17 Operative Procedure(s): Colposcopy with cervical biospies, diagnostic hysteroscopy, fractional D&C, operative laperoscopy with biopsies Findings: Colposcopy: HPV change from 10-2o'clock with no acetowhite changes 3 biopsies taken at 5, 7 and 12o'clock Uterus sounded to 10cm and anteverted Operative Laparoscopy: White lesion removed from the anterior of the uterus Blood filled bleb removed from the posterior section of uterus Possible diverticulitis noted with adhesions and inflammation between sigmoid colon and the left posterior section of the uterus Right ovary and tube was intact and appeared normal Left ovary and tube were beneath sigmoid adhesion Inflammatory blebs noted throughout pelvis and serosal surface of the uterus Pre Op Diagnosis: Pelvic and left lower quadrant pain Post-Op Diagnosis: Pelvic and left lower quadrant pain Anesthesia Technique: General ET Tube Primary Surgeon: Kassie Handley Injection Molding Machine Setter: Maicol Lo Pathology: Colposcopy biopsies x3 - 5, 7, and 12o'clock Endometrial curettings and endocervical curettings Anterior uterine lesion Posterior blood filled bleb Fluid Replacement, Intraop: 1,600 EBL in mLs: 20 Complications: None known Condition: Good <Kassie Handley - Last Filed: 02/01/17 14:48> - General Post-Op/Procedure Note Post-Op Diagnosis: and diverticulitis Free Text/Narrative:: Intake & Output 01/31/17 02/01/17 02/01/17 22:59 06:59 14:59 Intake Total 5450 Balance 5450
[2017-02-01 14:17] VITALS: BP 127/62
--- NOTE | 2017-02-01 20:47 | OR ---
SURGEON: Kassie Handley M.D. DATE OF PROCEDURE: 02/01/2017 PREOPERATIVE DIAGNOSIS: Pelvic pain and left lower quadrant pain. POSTOPERATIVE DIAGNOSES: 1. Pelvic pain and left lower quadrant pain. 2. Diverticulitis. PRINCIPAL TECHNICAL WRITER: Maicol Lo MS-4. ANESTHESIA: General endotracheal. FLUIDS: 1600 mL crystalloid. ESTIMATED BLOOD LOSS: 20 mL. COMPLICATIONS: None known. CONDITION: Stable to recovery. FINDINGS: On colposcopy, there were HPV changes from 10 o'clock to 2 o'clock, but no acetowhite changes. Three biopsies were randomly taken at 5, 7, and 12 o'clock. The uterus was anteverted and sounded to 10 cm. Hysteroscopy revealed a normal uterine cavity. Laparoscopy revealed adhesion and inflammation between the sigmoid colon and the entire left lower section of the uterus. This appeared to be consistent with diverticulitis Dr. Arana was called into the room. He agreed that this appeared to be consistent with diverticulitis. He recommended 2 weeks of antibiotics with a followup with him in 2 weeks for a colonoscopy. There were fluid-filled blebs along the posterior uterus, one was blood-filled, this one was biopsied. There was an elevated lesion on the anterior uterus which was also biopsied. The right tube and ovary appeared normal. The left ovary appeared normal, but was adherent beneath the sigmoid adhesion as was the left ovary. There were inflammatory blebs noted throughout the pelvis and on the serosal surface of the uterus. PATHOLOGY SPECIMENS: Colposcopic biopsies at 5, 7, and 12 o'clock; endometrial curettings; endocervical curettings; anterior uterine lesion; and posterior peritoneal uterine biopsy. BRIEF HISTORY: This is a 41-year-old female. She has had ongoing pelvic pain. She has had several rounds of antibiotics due to a hydrosalpinx that was seen on ultrasound. She received Rocephin and doxycycline and has had several prior rounds of antibiotics with her primary care provider. She was treated for a partially obstructive left ureteral stone by Dr. Fernandez. A followup CT scan was ordered by myself, and it did show that there were 2 very small stones in the left kidney. These were nonobstructive, and there were no stones within the ureter. The gallbladder showed a 2.5 cm gallstone. The uterus was prominent in size with question of adenomyosis. CT was otherwise normal. She presents for further evaluation. She has had a normal Pap smear, but high-risk HPV present. She has not had a colposcopy to this point; therefore, she was consented for a colposcopy with biopsies, diagnostic possible operative hysteroscopy with fractional D and C, and a diagnostic possible operative laparoscopy for pelvic pain with risks discussed including bleeding; infection; injury to bowel, bladder, blood vessels, ureters, other organs; risk of thromboembolic event; risk of anesthesia; risk of uterine perforation; and risk of fluid overload. Understanding all of these risks, she does desire to proceed. DESCRIPTION OF PROCEDURE: With the patient in dorsal lithotomy position, under adequate general endotracheal anesthesia, the abdomen was prepped with chlorhexidine. The perineum and vagina were prepped with Betadine and draped in the usual fashion for laparoscopic vaginal surgery. The bladder had been drained with a straight catheter. SCDs were in place and an appropriate time-out was held. Bimanual examination revealed a 10-week size, anteverted, mobile uterus. A rectovaginal exam was performed. The posterior aspect of the cervix was smooth without lesions. The speculum was placed in the vagina after verifier operator's gloves were changed, and the cervix was inspected with the colposcope. There were no abnormal vessels and after treatment with acetic acid, there were no areas of acetowhite epithelium. There was an irregular anterior transformation zone, consistent with HPV changes, but again with no acetowhite epithelium. Biopsies were taken at 12, 5, and 7 o'clock and were then treated with silver nitrate and Monsel's solution for hemostasis. The anterior lip of the cervix was then grasped with an Allis clamp, and the cervix was easily dilated to a 5 mm Hegar dilator. The 5 mm hysteroscope was placed into the uterine cavity using normal saline as a distending medium. There was excellent visualization of the uterine cavity including bilateral tubal ostia. There was no evidence of any polyp, fibroid, or irregular lesion. Therefore, the cervix was scraped with a box curette followed by Cytobrush for endocervical curettings. The cervix was further dilated to an 8 mm Hegar dilator. Sharp curettage was performed at the 12, 3, 6, and 9 o'clock position and a moderate amount of tissue was obtained. This being completed, the [employer] uterine manipulator was placed into the uterine cavity. The speculum was removed. The verifier operator's gloves were again changed and attention was turned abdominally, where 3 mL of 0.25% Marcaine was injected inferior to the umbilicus. A 5 mm incision was made and the anterior abdominal wall was elevated. Veress needle was inserted. Opening pressure was 2-3 mmHg. CO2 was insufflated to develop an adequate pneumoperitoneum of 15 mmHg. The 5 mm port was placed under direct visualization. The pelvic findings were as noted above. There were no adhesions of the upper abdomen. The liver and gallbladder appeared normal. Dr. Arana was called into the room due to the extensive sigmoid adhesion to the posterior uterus, which I felt was due to diverticular disease. He agreed that this appeared consistent with diverticular disease, and his recommendation was to follow up after completing 2 more weeks of antibiotics of Flagyl and Levaquin. The largest inflammatory bleb which was blood-filled on the back of the uterus was biopsied using the LigaSure to cauterize and cut at the base. There was an anterior fleshy lesion of the uterus, which was also biopsied using the LigaSure. The pelvis was copiously irrigated. Any areas of bleeding that were noted were cauterized. I did not proceed with any lysis of adhesions of the left lower quadrant due to concern that there may be bowel involved and Dr. Arana did not want to proceed with any lysis at this time either. The abdomen was then desufflated and the ports were removed. The skin was closed with subcuticular suture of 4-0 Caprosyn. The ZUMI uterine manipulator was removed. The speculum was placed in the vagina. The cervix was inspected and appeared hemostatic. Final sponge, needle, and instrument counts were reported as correct. There were no known complications. The patient was transferred to recovery in good condition. SUSIE / MICHAEL /[id number]
== END 2017-02-01 14:00 | disposition home or self-care (01) ==
LOC: MW.SDS 08:18
PROVIDERS: ATTEND Obstetrics & Gynecology
DX: N72 Inflammatory disease of cervix uteri (principal); B97.7 Papillomavirus as the cause of diseases classified elsewhere; I10 Essential (primary) hypertension; E11.9 Type 2 diabetes mellitus without complications; Z98.890 Other specified postprocedural states; Z79.899 Other long term (current) drug therapy
CPT/HCPCS: 36415; 49321; 57455; 58558; 82962; 84703; 85027; 88305; J1885; J2250; J2405; J3010; J7120; 00902; J2704

== ENCOUNTER 2017-02-26 17:32 | Emergency (ER) | payer MEDICAID ==
[2017-02-26 17:42] VITALS: BP 129/96
[2017-02-26] MEDS ORDERED: Acetaminophen/HYDROcodone 325-7.5 MG Tab PO ONE (17:54)
--- NOTE | 2017-02-26 17:57 | EDM.PDOC ---
ED HPI GENERAL MEDICAL PROBLEM - General Chief Complaint: Back Pain or Injury Stated Complaint: BACK PAIN Time Seen by Provider: 02/26/17 17:44 - History of Present Illness INITIAL COMMENTS - FREE TEXT/NARRATIVE: HISTORY AND PHYSICAL: History of present illness: The patient is a 41-year-old female who presents with several days of bilateral lower back pain near the "start of her butt" which radiates around to her lower abdomen. Patient says she has a surgery --- cholecystectomy-- scheduled this Tuesday and is not allowed to take any nonsteroidals and wasn't sure which she takes for pain because she doesn't want to miss her surgery and she was at work today when she was sent here by her employer because she was so uncomfortable. The patient denies any recent trauma and has no neurosensory changes in her legs and no bowel or bladder disturbances. Patient does not have any upper abdominal pain and does have a history of gallstones which is what her surgery is for on Tuesday. She has had no nausea or vomiting no fevers or chills no flank pain chest pain or shortness of breath. The pain is localized to her sacral area and her posterior pelvis and that is the site of origin and she shows me how it radiates around bilaterally. There is no hip pain and the pain does not radiate to her but her down her legs. The patient said that because of the surgery she has not taken anything. She says the pain is worse with activities and seems to get worse as the day goes on and she does a lot of standing and walking for her job. She also tells me that she was told that she had endometriosis and she is not sure if that is contributing to her pain. Patient says she's been having normal bowel movements and normal urine output without dysuria frequency or hematuria. Review of systems: As per history of present illness and below otherwise all systems reviewed and negative. Past medical history: As per history of present illness and as reviewed below otherwise noncontributory. Surgical history: As per history of present illness and as reviewed below otherwise noncontributory. Social history: No reported history of drug or alcohol abuse. Family history: As per history of present illness and as reviewed below otherwise noncontributory. Physical exam: Gen.: Well-developed well-nourished female who is nontoxic and prefers to stand or lay and not sit due to discomfort. She moves easily in the ED and vital signs have been reviewed by me HEENT: Atraumatic, normocephalic, negative for conjunctival pallor or scleral icterus, mucous membranes moist, throat clear, neck supple, nontender, trachea midline. Lungs: Clear to auscultation, breath sounds equal bilaterally, chest nontender. Heart: S1S2, regular rate and rhythm no murmurs Abdomen: Soft, nondistended, mild bilateral lower abdominal tenderness on deep palpation without rebound or guarding. Bowel sounds are hypoactive. Negative for masses or hepatosplenomegaly. Negative for costovertebral tenderness. Pelvis: Stable , when I palpate the SI joints bilaterally there is discrete tenderness with this palpation although there is no fullness redness or warmth. There are no palpable deformities of the bony pelvis. The patient says that when I indicate these areas and touch them this is where her pain originates. 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: Deferred. Rectal: Deferred. Extremities: Atraumatic, negative for cords or calf pain. Neurovascular unremarkable. Full range of motion without defects or deficits Neuro: Awake, alert, oriented. Cranial nerves II through XII unremarkable. Cerebellum unremarkable. Motor and sensory unremarkable throughout. Exam nonfocal. Gait is intact, dorsi and plantar flexion is intact 5/5 inclusive of the great toe Back: There are no midline step-offs in his defects of the thoracic or lumbar spine and there is SI joint tenderness as indicated above in the pelvis exam. Diagnostics: Pelvis x-ray, CBC CMP UA [employer]: Lawrence 1845: This case was discussed with Dr. Guzman about pain management in light of her upcoming cholecystectomy with Dr. CURRAN on Tuesday. He said that Tylenol and tramadol would be okay and I will give her prescription for tramadol and tell her to add the Tylenol. Impression: Posterior pelvis pain/SI joint pain Definitive disposition and diagnosis as appropriate pending reevaluation and review of above. bilateral flank Pain Score (Numeric/FACES): 10 - Related Data Allergies Allergy/AdvReac Type Severity Reaction Status Date / Time No Known Allergies Allergy Verified 02/26/17 17:41 Home Meds: Home Meds Acetaminophen with Codeine [Tylenol with Codeine #3 Tablet] 1 tab PO ASDIRECTED PRN 11/25/16 [History] Metoclopramide [Reglan] 10 mg PO ASDIRECTED PRN 11/25/16 [History] SUMAtriptan Succinate [Imitrex] 100 mg PO ASDIRECTED PRN 11/25/16 [History] metFORMIN HCl [Metformin HCl] 1,000 mg PO BID 01/27/17 [History] Levofloxacin [Levaquin] 500 mg PO DAILY #14 tablet 02/01/17 [Rx] Ketorolac [Toradol] 10 mg PO ASDIRECTED PRN 02/23/17 [History] metroNIDAZOLE [Flagyl] 500 mg PO DAILY 02/25/17 [History] Past Medical History HEENT History: Reports: None Cardiovascular History: Reports: None, Other (See Below) Respiratory History: Reports: None Gastrointestinal History: Reports: Cholelithiasis 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 History: Reports: Hydronephrosis, Renal Calculus 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 History: currently [employer] History: Reports: Endometriosis, PID, Musculoskeletal History: Reports: None Other Musculoskeletal History: occasional back pain Neurological History: Reports: Migraines Psychiatric History: Reports: None Endocrine/Metabolic History: Reports: Diabetes, Type II, Obesity/BMI 30+ Hematologic History: Reports: None Immunologic History: Reports: None Oncologic (Cancer) History: Reports: None Dermatologic History: Reports: None - Infectious Disease History Infectious Disease History: Reports: None - Past Surgical History Head Surgeries/Procedures: Reports: None Female Surgical History: Reports: None Social & Family History - Family History Family Medical History: Noncontributory - Tobacco Use Smoking Status *Q: Never Smoker Second Hand Smoke Exposure: No - Caffeine Use Caffeine Use: Reports: Soda - Recreational Drug Use Recreational Drug Use: No Drug Use in Last 12 Months: No ED ROS GENERAL - Review of Systems Review Of Systems: ROS reveals no pertinent complaints other than HPI. ED EXAM, GENERAL - Physical Exam Exam: See Below (See dictation) Course - Vital Signs Last Recorded V/S: Last Vital Signs Temp 36.3 C 02/26/17 17:39 Pulse 89 02/26/17 17:39 Resp 20 02/26/17 17:39 BP 129/96 H 02/26/17 17:39 Pulse Ox 99 02/26/17 17:39 - Orders/Labs/Meds Orders: Active Orders 24 hr Category Date Time Status Pelvis 1V or 2V [CR] Stat Exams 11/11/17 17:54 Ordered Labs: Laboratory Tests 02/26/17 02/26/17 02/26/17 Range/Units 18:00 18:00 18:19 WBC 11.31 H (4.0-11.0) K/uL RBC 4.91 (4.30-5.90) M/uL Hgb 14.3 (12.0-16.0) g/dL Hct 42.1 (36.0-46.0) % MCV 85.7 (80.0-98.0) fL MCH 29.1 (27.0-32.0) pg MCHC 34.0 (31.0-37.0) g/dL RDW Std Deviation 39.7 (28.0-62.0) fl RDW Coeff of Ibeth 13 (11.0-15.0) % Plt Count 240 (150-400) K/uL MPV 10.30 (7.40-12.00) fL Neut % (Auto) 66.2 (48.0-80.0) % Lymph % (Auto) 26.7 (16.0-40.0) % [place] % (Auto) 5.3 (0.0-15.0) % Eos % (Auto) 1.6 (0.0-7.0) % Baso % (Auto) 0.2 (0.0-1.5) % Neut # (Auto) 7.5 H (1.4-5.7) K/uL Lymph # (Auto) 3.0 H (0.6-2.4) K/uL [place] # (Auto) 0.6 (0.0-0.8) K/uL Eos # (Auto) 0.2 (0.0-0.7) K/uL Baso # (Auto) 0.0 (0.0-0.1) K/uL Nucleated RBC % 0.0 /100WBC Nucleated RBCs # 0 K/uL Sodium 137 (136-146) mmol/L Potassium 4.2 (3.5-5.1) mmol/L Chloride 105 (98-110) mmol/L Carbon Dioxide 24 (21-31) mmol/L BUN 13 (6.0-23.0) mg/dL Creatinine 0.8 (0.6-1.5) mg/dL Est Cr Clr Drug Dosing 78.30 mL/min Estimated GFR (MDRD) > 60.0 ml/min Glucose 108 (60-110) mg/dL Calcium 9.2 (8.8-10.8) mg/dL Total Bilirubin 0.4 (0.1-1.5) mg/dL AST 17 (5-40) IU/L ALT 15 (8-54) IU/L Alkaline Phosphatase 77 (40-150) Total Protein 7.8 (6.0-8.0) g/dL Albumin 4.2 (3.5-5.0) g/dL Globulin 3.6 H (2.0-3.5) g/dL Albumin/Globulin Ratio 1.2 L (1.3-2.8) Urine Color Urine Appearance Urine pH (5.0-8.0) Ur Specific [place] (1.001-1.035) Urine Protein (NEGATIVE) mg/dL Urine Glucose (UA) (NEGATIVE) mg/dL Urine Ketones (NEGATIVE) mg/dL Urine Occult Blood (NEGATIVE) Urine Nitrite (NEGATIVE) Urine Bilirubin (NEGATIVE) Urine Urobilinogen (<2.0) EU/dL Ur Leukocyte Esterase (NEGATIVE) Urine RBC (0-2/HPF) Urine WBC (0-5/HPF) Ur Epithelial Cells (NONE-FEW) Urine Bacteria (NEGATIVE) Urine HCG, Qual NEGATIVE (NEGATIVE) 02/26/17 Range/Units 18:19 WBC (4.0-11.0) K/uL RBC (4.30-5.90) M/uL Hgb (12.0-16.0) g/dL Hct (36.0-46.0) % MCV (80.0-98.0) fL MCH (27.0-32.0) pg MCHC (31.0-37.0) g/dL RDW Std Deviation (28.0-62.0) fl RDW Coeff of Ibeth (11.0-15.0) % Plt Count (150-400) K/uL MPV (7.40-12.00) fL Neut % (Auto) (48.0-80.0) % Lymph % (Auto) (16.0-40.0) % [place] % (Auto) (0.0-15.0) % Eos % (Auto) (0.0-7.0) % Baso % (Auto) (0.0-1.5) % Neut # (Auto) (1.4-5.7) K/uL Lymph # (Auto) (0.6-2.4) K/uL [place] # (Auto) (0.0-0.8) K/uL Eos # (Auto) (0.0-0.7) K/uL Baso # (Auto) (0.0-0.1) K/uL Nucleated RBC % /100WBC Nucleated RBCs # K/uL Sodium (136-146) mmol/L Potassium (3.5-5.1) mmol/L Chloride (98-110) mmol/L Carbon Dioxide (21-31) mmol/L BUN (6.0-23.0) mg/dL Creatinine (0.6-1.5) mg/dL Est Cr Clr Drug Dosing mL/min Estimated GFR (MDRD) ml/min Glucose (60-110) mg/dL Calcium (8.8-10.8) mg/dL Total Bilirubin (0.1-1.5) mg/dL AST (5-40) IU/L ALT (8-54) IU/L Alkaline Phosphatase (40-150) Total Protein (6.0-8.0) g/dL Albumin (3.5-5.0) g/dL Globulin (2.0-3.5) g/dL Albumin/Globulin Ratio (1.3-2.8) Urine Color YELLOW Urine Appearance CLEAR Urine pH 6.0 (5.0-8.0) Ur Specific [place] 1.010 (1.001-1.035) Urine Protein NEGATIVE (NEGATIVE) mg/dL Urine Glucose (UA) 500 H (NEGATIVE) mg/dL Urine Ketones NEGATIVE (NEGATIVE) mg/dL Urine Occult Blood SMALL H (NEGATIVE) Urine Nitrite NEGATIVE (NEGATIVE) Urine Bilirubin NEGATIVE (NEGATIVE) Urine Urobilinogen 0.2 (<2.0) EU/dL Ur Leukocyte Esterase TRACE (NEGATIVE) Urine RBC 0-2 (0-2/HPF) Urine WBC 2-6 (0-5/HPF) Ur Epithelial Cells FEW (NONE-FEW) Urine Bacteria FEW (NEGATIVE) Urine HCG, Qual (NEGATIVE) Meds: Medications Discontinued Medications Generic Name Dose Route Start Last Admin Trade Name Freq PRN Reason Stop Dose Admin Hydrocodone Bitart/Acetaminophen 1 tab 02/26/17 17:54 02/26/17 18:16 [place] 325-7.5 Mg PO 02/26/17 17:55 1 tab ONETIME ONE Administration Orphenadrine Citrate 60 mg 02/26/17 17:54 02/26/17 18:16 Norflex IM 02/26/17 17:55 60 mg ONETIME ONE Administration Departure - Departure Time of Disposition: 19:30 Disposition: Home, Self-Care 01 Condition: Good Clinical Impression: SI (sacroiliac) joint inflammation Back pain Qualifiers: Back pain location: low back pain Chronicity: acute Back pain laterality: bilateral Sciatica presence: without sciatica Qualified Code(s): M54.5 - Low back pain - Discharge Information Referrals: PCP,None [Primary Care Provider] - Forms: ED Department Discharge Additional Instructions: The following information is given to patients seen in the emergency department who are being discharged to home. This information is to outline your options for follow-up care. We provide all patients seen in our emergency department with a follow-up referral. The need for follow-up, as well as the timing and circumstances, are variable depending upon the specifics of your emergency department visit. If you don't have a primary care physician on staff, we will provide you with a referral. We always advise you to contact your personal physician following an emergency department visit to inform them of the circumstance of the visit and for follow-up with them and/or the need for any referrals to a consulting specialist. The emergency department will also refer you to a specialist when appropriate. This referral assures that you have the opportunity for followup care with a specialist. All of these measure are taken in an effort to provide you with optimal care, which includes your followup. Under all circumstances we always encourage you to contact your private physician who remains a resource for coordinating your care. When calling for followup care, please make the office aware that this follow-up is from your recent emergency room visit. If for any reason you are refused follow-up, please contact the [facility] emergency department at and ask to speak to the emergency department charge nurse. [facility] Primary care- Internal Medicine and Family [address] [address] Use ice to areas of discomfort especially after you work or have activity. Please use [id number] Tylenol or tramadol you have been prescribed for pain management and avoid any ibuprofen or Motrin products. Please push fluids and try to rest. Please keep your appointment for your surgery on Tuesday as scheduled and return to ER as needed and as discussed. - My Orders Last 24 Hours: My Active Orders 02/26/17 17:54 Pelvis 1V or 2V [CR] Stat - Assessment/Plan Last 24 Hours: My Active Orders 02/26/17 17:54 Pelvis 1V or 2V [CR] Stat
[2017-02-26 18:28] LABS: CHLORIDE,CL 105 mmol/L (98-110); SODIUM,NA 137 mmol/L (136-146)
--- NOTE | 2017-02-28 13:21 | CR ---
EXAM DATE: 02/26/17 PATIENT'S AGE: 41 Patient: MONIKA VELA Facility: [place], [place] Site . Site : [id number] Study: XRay Pelvis [id number]/11/2017 7:07:46 PM Ordering Physician: Nae Christian Final Report: INDICATION: bilateral flank pain/back pain TECHNIQUE: Pelvis radiograph 1 view bilateral COMPARISON: None FINDINGS: Bones: Alignment is normal. No acute fractures or aggressive bone lesions identified. Joint spaces: The hip joints are unremarkable in appearance. The SI joints are unremarkable. No radiographic evidence of hip effusions are seen. The pubic symphysis is normal in appearance. Soft tissues: The visualized bowel gas pattern is normal. No abnormal calcifications are noted in the pelvis. Two small pelvic phleboliths are noted. IMPRESSION: 1. No acute osseous injuries are noted. Dictated by: Michael Rodríguez MD @ 02/26/2017 19:16:55 (Electronic Signature) Report Signed by Proxy. [facility] HOSPITALPriscila
== END 2017-02-26 19:34 | disposition home or self-care (01) ==
LOC: MW.ED 17:32
DX: M46.1 Sacroiliitis, not elsewhere classified (principal); Z79.899 Other long term (current) drug therapy; Z79.84 Long term (current) use of oral hypoglycemic drugs
CPT/HCPCS: 36415; 72170; 80053; 81001; 81025; 85025; 96372; 99284; A9270; J2360; 99283

== ENCOUNTER 2017-03-15 06:38 | Day surgery (SDC) | payer MEDICAID ==
[~2017-03-15 06:38] MED LIST changes: +ceFAZolin 2 GM in Premix Bag 1 BAG IV ONE
[2017-03-15] MEDS ORDERED: Scopolamine 1.5 MG Transdermal Patch TRDERM PRN (07:11)
--- NOTE | 2017-03-15 07:11 | PCM.PREANE ---
Preanesthetic Assessment - Anesthesia/Transfusion/Family Hx Anesthesia History: Prior Anesthesia Without Reaction Family History of Anesthesia Reaction: No Transfusion History: No Prior Transfusion(s) Intubation History: Unknown - Review of Systems General: No Symptoms Pulmonary: No Symptoms Cardiovascular: No Symptoms Gastrointestinal: Abdominal Pain Neurological: No Symptoms Other: Reports: None - Physical Assessment Height: 1.63 m Weight: 84.822 kg ASA Class: 2 Mental Status: Alert & Oriented x3 Airway Class: Mallampati = 3 Dentition: Reports: Normal Dentition Thyro-Mental Finger Breadths: 3 Mouth Opening Finger Breadths: 2 ROM/Head Extension: Full Lungs: Clear to Auscultation, Normal Respiratory Effort Cardiovascular: Regular Rate, Regular Rhythm - Lab Values: Laboratory Last Values POC Glucose 135 mg/dL (60-110) H 03/15/17 07:59 Urine HCG, Qual NEGATIVE (NEGATIVE) 03/15/17 06:40 - Allergies Allergies/Adverse Reactions: Allergies Allergy/AdvReac Type Severity Reaction Status Date / Time No Known Allergies Allergy Verified 02/26/17 17:41 - Blood Blood Available: No - Anesthesia Plan Pre-Op Medication Ordered: None - Acknowledgements Anesthesia Type Planned: General Anesthesia Pt an Appropriate Candidate for the Planned Anesthesia: Yes Alternatives and Risks of Anesthesia Discussed w Pt/Guardian: Yes Pt/Guardian Understands and Agrees with Anesthesia Plan: Yes PreAnesthesia Questionnaire HEENT History: Reports: None Cardiovascular History: Reports: None, Other (See Below) (h/o hypertension) Respiratory History: Reports: None Gastrointestinal History: Reports: Cholelithiasis 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 History: Reports: Hydronephrosis, Renal Calculus 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 History: 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, Musculoskeletal History: Reports: None Other Musculoskeletal History: occasional back pain Neurological History: Reports: Migraines Psychiatric History: Reports: None Endocrine/Metabolic History: Reports: Diabetes, Type II, Obesity/BMI 30+ Hematologic History: Reports: None Immunologic History: Reports: None Oncologic (Cancer) History: Reports: None Dermatologic History: Reports: None - Infectious Disease History Infectious Disease History: Reports: None - Past Surgical History Head Surgeries/Procedures: Reports: None GI Surgical History: Reports: Colonoscopy, Other (See Below) (exp.laparoscopy x5 ) Female Surgical History: Reports: None, Kidney stone extraction - SUBSTANCE USE Smoking Status *Q: Never Smoker Second Hand Smoke Exposure: No Recreational Drug Use History: No - HOME MEDS Home Medications: Home Meds Acetaminophen with Codeine [Tylenol with Codeine #3 Tablet] 1 tab PO ASDIRECTED PRN 11/25/16 [History] Metoclopramide [Reglan] 10 mg PO ASDIRECTED PRN 11/25/16 [History] SUMAtriptan Succinate [Imitrex] 100 mg PO ASDIRECTED PRN 11/25/16 [History] metFORMIN HCl [Metformin HCl] 1,000 mg PO BID 01/27/17 [History] Levofloxacin [Levaquin] 500 mg PO DAILY #14 tablet 02/01/17 [Rx] Ketorolac [Toradol] 10 mg PO ASDIRECTED PRN 02/23/17 [History] metroNIDAZOLE [Flagyl] 500 mg PO DAILY 02/25/17 [History] - CURRENT (IN HOUSE) MEDS Current Meds: Current Medications Lactated Ringer's (Ringers, Lactated) 1,000 mls @ 125 mls/hr IV ASDIRECTED STEPHANIE Discontinued Medications Cefazolin Sodium/Dextrose 2 gm (/ Premix) 50 mls @ 100 mls/hr IV ONETIME ONE Stop: 03/15/17 05:29
[2017-03-15] MEDS ORDERED: fentaNYL 100 MCG/2 ML SDV ONE (07:19)
[2017-03-15] MEDS ORDERED: Midazolam 1 MG/ML 2 ML SDV ONE (07:19)
[2017-03-15] MEDS ORDERED: Propofol 200 MG/20 ML SDV ONE (07:19)
[2017-03-15] MEDS ORDERED: Neostigmine Methylsulfate 1 MG/ML 5 ML Syringe ONE (07:22)
[2017-03-15] MEDS ORDERED: Bupivacaine 25%/EPINEPHrine/PF 30 ML ONE (07:22)
[2017-03-15] MEDS ORDERED: Ondansetron 4 MG/2 ML SDV ONE (07:22)
[2017-03-15] MEDS ORDERED: diphenhydrAMINE 50 MG/ML SDV ONE (07:22)
[2017-03-15] MEDS ORDERED: Lidocaine 2% 5 ML SDV ONE (07:22)
[2017-03-15] MEDS ORDERED: Ketorolac 30 MG/ML SDV ONE (07:22)
[2017-03-15] MEDS ORDERED: Rocuronium 10 MG/ML 10 ML Syringe ONE (07:22)
[2017-03-15] MEDS ORDERED: Lidocaine 2% Jelly 30 ML Tube ONE (07:23)
[2017-03-15] MEDS ORDERED: ceFAZolin 1 GM Vial ONE (07:24)
[2017-03-15] MEDS ORDERED: Octyl 2-Cyanoacrylate 1 Tube ONE (07:25)
[2017-03-15] MEDS ORDERED: Scopolamine 1.5 MG Transdermal Patch ONE (07:35)
[2017-03-15] MEDS ORDERED: fentaNYL 100 MCG/2 ML SDV IVPUSH PRN (07:47)
[2017-03-15] MEDS ORDERED: HYDROmorphone 2 MG/ML Syringe ONE (08:23)
[2017-03-15] MEDS ORDERED: Phenylephrine/Normal Saline 100 MCG/ML 10 ML Syringe ONE (08:26)
--- NOTE | 2017-03-15 10:17 | PCM.OPNOTE ---
- General Post-Op/Procedure Note Date of Surgery/Procedure: 03/15/17 Operative Procedure(s): lap gerardo Findings: a very large gs, and some smaller ones; large amt of adherence to surrounding organs, wall is not thickened; wall is green and yellow cw chronic cholecystitis ; [id number] Pre Op Diagnosis: chr and acute cholecystitis Post-Op Diagnosis: Same Anesthesia Technique: General ET Tube Primary Surgeon: Avni Arana Pathology: sent Complications: None Condition: Good
[2017-03-15] MEDS ORDERED: Acetaminophen/oxyCODONE 325-10 MG Tab PO ONE (10:19)
--- NOTE | 2017-03-15 10:42 | OR ---
SURGEON: Avni Arana MD DATE OF PROCEDURE: 03/15/2017 PREOPERATIVE DIAGNOSIS: Chronic and acute cholecystitis. POSTOPERATIVE DIAGNOSIS: Chronic and acute cholecystitis. PROCEDURE PERFORMED: Laparoscopic cholecystectomy. INTRAOPERATIVE FINDINGS: Gallbladder has a very large gallstone at least 3 cm and some smaller ones and large amount of adherence to surrounding organ, yellow and green, wall was not thickened, consistent with chronic cholecystitis. DESCRIPTION OF PROCEDURE: The patient was taken to the operating room and placed in the supine position. After the intubation of general endotracheal anesthesia, the patient's abdomen was prepped and draped in the usual sterile fashion. Using [email or web address], a 12 mm trocar was placed supraumbilically and then followed with pneumoperitoneum. A 5 mm trocar was placed in the epigastrium and two 5 mm trocars placed in the right upper quadrant. The placement of the last three trocars was done under direct video supervision. Upon gaining entrance to the abdominal cavity, an extensive examination was then performed. The gallbladder was located and identified and retracted to the dome of the liver at the triangle of Calot. The cystic duct was clipped three more times and then using the endoscopic clip, was transected with placement of the endoscopic clip and transection was performed with care, ensuring the posterior prong of the instruments were clearly visualized prior to exercising the procedure. The gallbladder was dissected using electrocautery out of the liver bed and then removed using endoscopic bag through the umbilical site. The gallbladder was removed en bloc and there was no bile spillage and this was then followed with extensive irrigation until the bile was clear from blood and bile. The trocars were then removed under direct video supervision. The 12 mm umbilical site was then closed with deep stitches using 0 Vicryl followed with proximal stitches using 3-0 Vicryl and Dermabond. The other three trocar sites were closed with 3-0 Vicryl followed with approximation of skin with Dermabond. The patient was then awakened and extubated and transferred to the recovery room in hemodynamically stable condition. At the conclusion of the surgery, before closing the abdominal wound, instrument count and sponge count were done and were correct. The patient tolerated the procedure well and there were no intraoperative complications. Dr. Arana was present through the whole procedure. Just before surgery, a timeout was called. The patient was identified and procedure identified and procedure started. Intraoperative findings as dictated above. After gallbladder was removed, hemostasis also helped in inserting a piece of Surgicel. As always, thank you for the kind referral. ROSLYN RORDIGUEZ /[id number]
[2017-03-15] MEDS ORDERED: Acetaminophen 1,000 MG in Premix Bag 1 BAG IV ONE (11:17)
[2017-03-15 13:53] VITALS: BP 124/79
== END 2017-03-15 12:45 | disposition home or self-care (01) ==
LOC: MW.SDS 06:38
PROVIDERS: ATTEND Surgery
DX: K80.12 Calculus of gallbladder with acute and chronic cholecystitis without obstruction (principal); E11.9 Type 2 diabetes mellitus without complications; I10 Essential (primary) hypertension; G43.909 Migraine, unspecified, not intractable, without status migrainosus; E66.9 Obesity, unspecified; Z87.442 Personal history of urinary calculi; Z79.84 Long term (current) use of oral hypoglycemic drugs; Z79.899 Other long term (current) drug therapy; Z98.890 Other specified postprocedural states; Z68.32 Body mass index [BMI] 32.0-32.9, adult
CPT/HCPCS: 47562; 81025; 82962; A9270; J0690; J1170; J1200; J2250; J2405; J3010; J7120; 00790; 88304; J1885; J2704

== ENCOUNTER 2017-04-14 12:03 | Day surgery (SDC) | payer MEDICAID ==
[~2017-04-14 12:03] MED LIST changes: -ceFAZolin 2 GM in Premix Bag 1 BAG IV ONE
[2017-04-14] MEDS ORDERED: Lidocaine 2% 5 ML SDV ONE (13:25)
[2017-04-14] MEDS ORDERED: fentaNYL 100 MCG/2 ML SDV ONE (13:25)
[2017-04-14] MEDS ORDERED: Propofol 200 MG/20 ML SDV ONE (13:25)
[2017-04-14] MEDS ORDERED: Midazolam 1 MG/ML 2 ML SDV ONE (13:25)
--- NOTE | 2017-04-14 14:21 | PCM.PREANE ---
Preanesthetic Assessment - Procedure Proposed Procedure: colonoscopy - Anesthesia/Transfusion/Family Hx Anesthesia History: Prior Anesthesia Without Reaction Family History of Anesthesia Reaction: No Transfusion History: No Prior Transfusion(s) Intubation History: Unknown - Review of Systems General: Other (hx diverticulitis) Pulmonary: No Symptoms Cardiovascular: No Symptoms Gastrointestinal: Hematochezia Neurological: Headache (migraines) Other: Reports: Diabetes, Depression - Physical Assessment NPO Status Date: 04/13/17 NPO Status Time: 18:00 O2 Sat by Pulse Oximetry: 97 Respiratory Rate: 16 Vital Signs: Last Vital Signs Temp 98.1 F 04/14/17 12:40 Pulse 77 04/14/17 12:40 Resp 16 04/14/17 12:40 BP 100/66 04/14/17 12:40 Pulse Ox 97 04/14/17 12:40 Height: 5 ft 4 in Weight: 188 lb ASA Class: 2 Mental Status: Alert & Oriented x3 Airway Class: Mallampati = 2 Dentition: Reports: Normal Dentition Thyro-Mental Finger Breadths: 3 Mouth Opening Finger Breadths: 3 ROM/Head Extension: Full Lungs: Clear to Auscultation, Normal Respiratory Effort Cardiovascular: Regular Rate, Regular Rhythm, No Murmurs - Lab Values: Laboratory Last Values HCG, Qual NEGATIVE (NEG) 04/14/17 13:04 - Allergies Allergies/Adverse Reactions: Allergies Allergy/AdvReac Type Severity Reaction Status Date / Time No Known Allergies Allergy Verified 04/08/17 14:27 - Blood Blood Available: No Product(s) Available: None - Anesthesia Plan Pre-Op Medication Ordered: None - Acknowledgements Anesthesia Type Planned: MAC Pt an Appropriate Candidate for the Planned Anesthesia: Yes Alternatives and Risks of Anesthesia Discussed w Pt/Guardian: Yes Pt/Guardian Understands and Agrees with Anesthesia Plan: Yes PreAnesthesia Questionnaire HEENT History: Reports: None Cardiovascular History: Reports: None Respiratory History: Reports: None Gastrointestinal History: Reports: Cholelithiasis 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 History: Reports: Hydronephrosis, Renal Calculus 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, Musculoskeletal History: Reports: Arthritis, Back Pain, Chronic Neurological History: Reports: Migraines Psychiatric History: Reports: None Endocrine/Metabolic History: Reports: Diabetes, Type II, Obesity/BMI 30+ Hematologic History: Reports: None Immunologic History: Reports: None Oncologic (Cancer) History: Reports: None Dermatologic History: Reports: None - Infectious Disease History Infectious Disease History: Reports: None - Past Surgical History Head Surgeries/Procedures: Reports: None GI Surgical History: Reports: Cholecystectomy, Colonoscopy Female Surgical History: Reports: Kidney stone extraction - SUBSTANCE USE Smoking Status *Q: Never Smoker Second Hand Smoke Exposure: No Recreational Drug Use History: No - HOME MEDS Home Medications: Home Meds SUMAtriptan Succinate [Imitrex] 100 mg PO ASDIRECTED PRN 11/25/16 [History] metFORMIN HCl [Metformin HCl] 1,000 mg PO BID 01/27/17 [History] Ketorolac [Toradol] 10 mg PO ASDIRECTED PRN 02/23/17 [History] oxyCODONE HCl/Acetaminophen [Percocet 5-325 mg Tablet] 1 tab PO Q6H PRN [History] - CURRENT (IN HOUSE) MEDS Current Meds: Current Medications Lactated Ringer's (Ringers, Lactated) 1,000 mls @ 125 mls/hr IV ASDIRECTED STEPHANIE Last Admin: 04/14/17 12:46 Dose: 125 mls/hr Discontinued Medications Fentanyl (Sublimaze) Confirm Administered Dose 100 mcg .ROUTE .STK-MED ONE Stop: 04/14/17 13:26 Lidocaine (Xylocaine-Mpf 2%) Confirm Administered Dose 5 ml .ROUTE .STK-MED ONE Stop: 04/14/17 13:26 Midazolam HCl (Versed 1 Mg/Ml) Confirm Administered Dose 2 mg .ROUTE .STK-MED ONE Stop: 04/14/17 13:26 Propofol (Diprivan 20 Ml) Confirm Administered Dose 400 mg .ROUTE .STK-MED ONE Stop: 04/14/17 13:26
[2017-04-14] MEDS ORDERED: ePHEDrine 50 MG/ML SDV ONE (15:03)
--- NOTE | 2017-04-14 15:35 | PCM.OPNOTE ---
- General Post-Op/Procedure Note Date of Surgery/Procedure: 04/14/17 Operative Procedure(s): colonoscope w bx Findings: see dict [id number] Pre Op Diagnosis: abd pain Post-Op Diagnosis: Same Anesthesia Technique: Moderate Sedation Primary Surgeon: Avni Arana Complications: None Condition: Good
[2017-04-14 16:05] VITALS: BP 115/66
--- NOTE | 2017-04-14 19:17 | OR ---
SURGEON: Avni Arana MD DATE OF PROCEDURE: 04/14/2017 PREOPERATIVE DIAGNOSIS: Abdominal pain. POSTOPERATIVE DIAGNOSIS: Colitis. PROCEDURE PERFORMED: Colonoscopy, random biopsy. COMPLICATIONS: None. FINDINGS: 1. The patient is easily sedated with SALES AGENT and Diprivan. The patient is soundly snoring. 2. The patient's bowel prep was average to good. Very little liquid stool. No semi-formed stool. 3. The patient's colon rather straight forward. Cecum indicated by ileocecal fold, one-to-one indentation, light emittance, and an appendix orifice. Mucosa examined upon scope pulling out with some irrigation. The patient does not have diverticulosis and polyp mass growth in AV malformation, ulceration, bleeding, none of those. The patient does have mild inflammation at around 60 to 70 cm end of scope, is a little bit proximal to the splenic flexure in the transverse colon area and it was biopsied and also random biopsy performed, so the patient had 2 specimens, one is random biopsy, one is biopsy of the colitis. The patient has mild internal hemorrhoids. No external hemorrhoids. The patient would benefit from repeat colonoscopy 10 years from today or if clinically indicated otherwise or if the biopsy turned out abnormal. PROCEDURE IN DETAILS: Colonoscopy: The patient was taken to the endoscopy room. A time out was called, patient identified, and procedure identified. Diprivan was then administrated. Patient went from awake to sleep, hearing doctor talking or door closing is normal. Perineum inspection and digital examination were then performed. A well-lubricated colonoscope was gently inserted through the rectum, advanced past the rectosigmoid junction, the descending colon, splenic flexure, transverse colon, hepatic flexure, ascending colon, arrived to the cecum. Cecum was identified as dictated in the finding. Then the scope was carefully withdrawn while attention was paid to the mucosal surface for any abnormality. Random colon bx was performed for abd pain; Air will be sucked out during the scope withdrawal. At the rectum, retroflexed to examine any rectal diseases, fistula or hemorrhoids. Patient tolerated procedure well. There were no intraoperative complications, and Dr. Arana was present throughout the whole procedure. As always, thank you for the kind referral. ROSLYN RODRIGUEZ /[id number] [place]
== END 2017-04-14 16:40 | disposition home or self-care (01) ==
LOC: MW.SDS 12:03
PROVIDERS: ATTEND Surgery
DX: K52.9 Noninfective gastroenteritis and colitis, unspecified (principal); K64.8 Other hemorrhoids; G43.909 Migraine, unspecified, not intractable, without status migrainosus; E11.9 Type 2 diabetes mellitus without complications; G89.29 Other chronic pain; M54.9 Dorsalgia, unspecified; F32.9 Major depressive disorder, single episode, unspecified; M19.90 Unspecified osteoarthritis, unspecified site; E66.9 Obesity, unspecified; Z68.32 Body mass index [BMI] 32.0-32.9, adult; Z90.49 Acquired absence of other specified parts of digestive tract; Z98.890 Other specified postprocedural states; Z87.442 Personal history of urinary calculi; Z79.899 Other long term (current) drug therapy; Z79.84 Long term (current) use of oral hypoglycemic drugs
CPT/HCPCS: 36415; 43239; 84703; 88305; J2250; J3010; J7120; 00810; J2704

== ENCOUNTER 2017-06-07 19:26 | Emergency (ER) | payer MEDICAID ==
[2017-06-07] MEDS ORDERED: Ondansetron 4 MG/2 ML SDV IVPUSH ONE (20:04)
[2017-06-07] MEDS ORDERED: Sodium Chloride 0.9% 1,000 ML IV ONE (20:04)
--- NOTE | 2017-06-07 20:11 | EDM.PDOC ---
ED HPI GENERAL MEDICAL PROBLEM - General Chief Complaint: Abdominal Pain Stated Complaint: ABDOMINAL PAIN/VOMITING Time Seen by Provider: 06/07/17 19:51 Source of Information: Reports: Patient History Limitations: Reports: No Limitations - History of Present Illness INITIAL COMMENTS - FREE TEXT/NARRATIVE: Presents to the ER reporting crampy lower abdominal pain and vomiting since 2 PM. Denies fever diarrhea. She had a brown formed stool today no blood, mucus black tarry stool. She does have a history of kidney stones but she states this pain is different. She also has a long history of endometriosis and currently is on the Lupron Depo. No dysuria, vaginal bleeding. She did see a provider last week for some upper respiratory symptoms, was told she had pneumonia, has been taking an inhaler and an unknown antibiotic for that. Abdomen Pain Score (Numeric/FACES): 10 - Related Data Allergies Allergy/AdvReac Type Severity Reaction Status Date / Time No Known Allergies Allergy Verified 06/07/17 19:37 Home Meds: Home Meds SUMAtriptan Succinate [Imitrex] 100 mg PO ASDIRECTED PRN 11/25/16 [History] metFORMIN HCl [Metformin HCl] 1,000 mg PO BID 01/27/17 [History] Ketorolac [Toradol] 10 mg PO ASDIRECTED PRN 02/23/17 [History] oxyCODONE HCl/Acetaminophen [Percocet 5-325 mg Tablet] 1 tab PO Q6H PRN [History] Past Medical History HEENT History: Reports: None Cardiovascular History: Reports: None Respiratory History: Reports: None Gastrointestinal History: Reports: Cholelithiasis 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 History: Reports: Hydronephrosis, Renal Calculus 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, Musculoskeletal History: Reports: Arthritis, Back Pain, Chronic Neurological History: Reports: Migraines Psychiatric History: Reports: None Endocrine/Metabolic History: Reports: Diabetes, Type II, Obesity/BMI 30+ Hematologic History: Reports: None Immunologic History: Reports: None Oncologic (Cancer) History: Reports: None Dermatologic History: Reports: None - Infectious Disease History Infectious Disease History: Reports: Chicken Pox - Past Surgical History Head Surgeries/Procedures: Reports: None GI Surgical History: Reports: Cholecystectomy, Colonoscopy Female Surgical History: Reports: Kidney stone extraction Social & Family History - Family History Family Medical History: Noncontributory - Tobacco Use Smoking Status *Q: Never Smoker Second Hand Smoke Exposure: No - Caffeine Use Caffeine Use: Reports: Soda - Recreational Drug Use Recreational Drug Use: No Drug Use in Last 12 Months: No ED ROS GENERAL - Review of Systems Review Of Systems: ROS reveals no pertinent complaints other than HPI. ED EXAM, GI/ABD - Physical Exam Exam: See Below Exam Limited By: No Limitations General Appearance: Alert, No Apparent Distress Ears: Normal External Exam, Normal TMs Nose: Normal Inspection Throat/Mouth: Normal Inspection Head: Atraumatic, Normocephalic Neck: Normal Inspection Respiratory/Chest: No Respiratory Distress, Lungs Clear, Normal Breath Sounds, Other (Harsh cough in exam room) Cardiovascular: Normal Peripheral Pulses, Regular Rate, Rhythm, No Murmur GI/Abdominal Exam: Normal Bowel Sounds, Soft, No Distention, Tender (accross lower abd but only to deep palpation) Back Exam: Normal Inspection Extremities: Normal Inspection, Normal Range of Motion Neurological: Alert, Oriented Psychiatric: Normal Affect, Normal Mood Skin Exam: Warm, Dry, Intact, Normal Color, No Rash Lymphatic: No Adenopathy Course - Vital Signs Last Recorded V/S: Last Vital Signs Temp 36.1 C 06/07/17 19:38 Pulse 80 06/07/17 19:38 Resp 18 06/07/17 19:38 BP 135/94 H 06/07/17 19:38 Pulse Ox 98 06/07/17 19:38 - Orders/Labs/Meds Orders: Active Orders 24 hr Category Date Time Status HYDROmorphone [Dilaudid] Med 06/07/17 20:21 Ordered 0.5 mg IVPUSH ONETIME PRN HYDROmorphone [Dilaudid] Med 06/07/17 20:27 Active 0.5 mg IVPUSH Q1H PRN Ketorolac [Toradol] Med 06/07/17 21:52 Once 30 mg IVPUSH ONETIME ONE Medication Orders Hydromorphone HCl (Dilaudid) 0.5 mg IVPUSH ONETIME PRN PRN Reason: Pain Hydromorphone HCl (Dilaudid) 0.5 mg IVPUSH Q1H PRN PRN Reason: Abdominal Pain Last Admin: 06/07/17 20:29 Dose: 0.5 mg Ketorolac Tromethamine (Toradol) 30 mg IVPUSH ONETIME ONE Stop: 06/07/17 21:53 Labs: Laboratory Tests 06/07/17 06/07/17 06/07/17 Range/Units 20:15 20:15 21:10 WBC 10.86 (4.0-11.0) K/uL RBC 5.22 (4.30-5.90) M/uL Hgb 15.0 (12.0-16.0) g/dL Hct 43.5 (36.0-46.0) % MCV 83.3 (80.0-98.0) fL MCH 28.7 (27.0-32.0) pg MCHC 34.5 (31.0-37.0) g/dL RDW Std Deviation 37.8 (28.0-62.0) fl RDW Coeff of Ibeth 13 (11.0-15.0) % Plt Count 292 (150-400) K/uL MPV 10.40 (7.40-12.00) fL Neut % (Auto) 64.0 (48.0-80.0) % Lymph % (Auto) 29.7 (16.0-40.0) % [place] % (Auto) 5.2 (0.0-15.0) % Eos % (Auto) 0.9 (0.0-7.0) % Baso % (Auto) 0.2 (0.0-1.5) % Neut # (Auto) 6.9 H (1.4-5.7) K/uL Lymph # (Auto) 3.2 H (0.6-2.4) K/uL [place] # (Auto) 0.6 (0.0-0.8) K/uL Eos # (Auto) 0.1 (0.0-0.7) K/uL Baso # (Auto) 0.0 (0.0-0.1) K/uL Nucleated RBC % 0.0 /100WBC Nucleated RBCs # 0 K/uL Sodium 139 (136-146) mmol/L Potassium 3.9 (3.5-5.1) mmol/L Chloride 105 (98-110) mmol/L Carbon Dioxide 25 (21-31) mmol/L BUN 11 (6.0-23.0) mg/dL Creatinine 0.8 (0.6-1.5) mg/dL Est Cr Clr Drug Dosing 78.30 mL/min Estimated GFR (MDRD) > 60.0 ml/min Glucose 133 H (60-110) mg/dL Calcium 9.6 (8.8-10.8) mg/dL Total Bilirubin 0.6 (0.1-1.5) mg/dL AST 17 (5-40) IU/L ALT 17 (8-54) IU/L Alkaline Phosphatase 79 (40-150) Total Protein 7.8 (6.0-8.0) g/dL Albumin 4.2 (3.5-5.0) g/dL Globulin 3.6 H (2.0-3.5) g/dL Albumin/Globulin Ratio 1.2 L (1.3-2.8) Urine Color YELLOW Urine Appearance CLEAR Urine pH 6.0 (5.0-8.0) Ur Specific [place] 1.025 (1.001-1.035) Urine Protein NEGATIVE (NEGATIVE) mg/dL Urine Glucose (UA) NEGATIVE (NEGATIVE) mg/dL Urine Ketones NEGATIVE (NEGATIVE) mg/dL Urine Occult Blood NEGATIVE (NEGATIVE) Urine Nitrite NEGATIVE (NEGATIVE) Urine Bilirubin NEGATIVE (NEGATIVE) Urine Urobilinogen 0.2 (<2.0) EU/dL Ur Leukocyte Esterase TRACE (NEGATIVE) Urine RBC 0-1 (0-2/HPF) Urine WBC 2-3 (0-5/HPF) Ur Epithelial Cells FEW (NONE-FEW) Urine Bacteria FEW (NEGATIVE) Urine HCG, Qual (NEGATIVE) 06/07/17 Range/Units 21:10 WBC (4.0-11.0) K/uL RBC (4.30-5.90) M/uL Hgb (12.0-16.0) g/dL Hct (36.0-46.0) % MCV (80.0-98.0) fL MCH (27.0-32.0) pg MCHC (31.0-37.0) g/dL RDW Std Deviation (28.0-62.0) fl RDW Coeff of Ibeth (11.0-15.0) % Plt Count (150-400) K/uL MPV (7.40-12.00) fL Neut % (Auto) (48.0-80.0) % Lymph % (Auto) (16.0-40.0) % [place] % (Auto) (0.0-15.0) % Eos % (Auto) (0.0-7.0) % Baso % (Auto) (0.0-1.5) % Neut # (Auto) (1.4-5.7) K/uL Lymph # (Auto) (0.6-2.4) K/uL [place] # (Auto) (0.0-0.8) K/uL Eos # (Auto) (0.0-0.7) K/uL Baso # (Auto) (0.0-0.1) K/uL Nucleated RBC % /100WBC Nucleated RBCs # K/uL Sodium (136-146) mmol/L Potassium (3.5-5.1) mmol/L Chloride (98-110) mmol/L Carbon Dioxide (21-31) mmol/L BUN (6.0-23.0) mg/dL Creatinine (0.6-1.5) mg/dL Est Cr Clr Drug Dosing mL/min Estimated GFR (MDRD) ml/min Glucose (60-110) mg/dL Calcium (8.8-10.8) mg/dL Total Bilirubin (0.1-1.5) mg/dL AST (5-40) IU/L ALT (8-54) IU/L Alkaline Phosphatase (40-150) Total Protein (6.0-8.0) g/dL Albumin (3.5-5.0) g/dL Globulin (2.0-3.5) g/dL Albumin/Globulin Ratio (1.3-2.8) Urine Color Urine Appearance Urine pH (5.0-8.0) Ur Specific [place] (1.001-1.035) Urine Protein (NEGATIVE) mg/dL Urine Glucose (UA) (NEGATIVE) mg/dL Urine Ketones (NEGATIVE) mg/dL Urine Occult Blood (NEGATIVE) Urine Nitrite (NEGATIVE) Urine Bilirubin (NEGATIVE) Urine Urobilinogen (<2.0) EU/dL Ur Leukocyte Esterase (NEGATIVE) Urine RBC (0-2/HPF) Urine WBC (0-5/HPF) Ur Epithelial Cells (NONE-FEW) Urine Bacteria (NEGATIVE) Urine HCG, Qual NEGATIVE (NEGATIVE) Meds: Medications Generic Name Dose Route Start Last Admin Trade Name Freq PRN Reason Stop Dose Admin Hydromorphone HCl 0.5 mg 06/07/17 20:21 Dilaudid IVPUSH ONETIME PRN Pain Hydromorphone HCl 0.5 mg 06/07/17 20:27 06/07/17 20:29 Dilaudid IVPUSH 0.5 mg Q1H PRN Administration Abdominal Pain Ketorolac Tromethamine 30 mg 06/07/17 21:52 Toradol IVPUSH 06/07/17 21:53 ONETIME ONE Discontinued Medications Generic Name Dose Route Start Last Admin Trade Name Francy PRN Reason Stop Dose Admin Hydromorphone HCl Confirm 06/07/17 20:25 06/07/17 20:44 Dilaudid Administered 06/07/17 20:26 Not Given Dose 1 mg .ROUTE .STK-MED ONE Sodium Chloride 1,000 mls @ 999 mls/hr 06/07/17 20:04 06/07/17 20:31 Normal Saline IV 06/07/17 21:04 Not Given STAT ONE Sodium Chloride 500 mls @ 999 mls/hr 06/07/17 20:21 06/07/17 20:15 Normal Saline IV 06/07/17 20:51 999 mls/hr .BOLUS ONE Administration Ondansetron HCl 4 mg 06/07/17 20:04 06/07/17 20:18 Zofran IVPUSH 06/07/17 20:05 4 mg ONETIME ONE Administration - Re-Assessments/Exams Free Text/Narrative Re-Assessment/Exam: 06/07/17 21:53 Pain much improved. No nausea. Departure - Departure Time of Disposition: 21:53 Disposition: Home, Self-Care 01 Condition: Good Clinical Impression: Endometriosis - Discharge Information Referrals: PCP,None [Primary Care Provider] - Kassie Handley MD [Physician] - Forms: ED Department Discharge Additional Instructions: 1. Follow up with Dr. Handley on Tuesday has previously scheduled 2. NSAIDs such as Aleve or Ibuprofen work well for endometriosis pain 3. Drink plenty of fluids as rest. Return for vomiting and not keeping down oral fluids. - My Orders Last 24 Hours: My Active Orders 06/07/17 20:21 HYDROmorphone [Dilaudid] 0.5 mg IVPUSH ONETIME PRN 06/07/17 20:27 HYDROmorphone [Dilaudid] 0.5 mg IVPUSH Q1H PRN 06/07/17 21:52 Ketorolac [Toradol] 30 mg IVPUSH ONETIME ONE - Assessment/Plan Last 24 Hours: My Active Orders 06/07/17 20:21 HYDROmorphone [Dilaudid] 0.5 mg IVPUSH ONETIME PRN 06/07/17 20:27 HYDROmorphone [Dilaudid] 0.5 mg IVPUSH Q1H PRN 06/07/17 21:52 Ketorolac [Toradol] 30 mg IVPUSH ONETIME ONE
[2017-06-07] MEDS ORDERED: Sodium Chloride 0.9% 500 ML IV ONE (20:21)
[2017-06-07] MEDS ORDERED: HYDROmorphone 2 MG/ML Syringe IVPUSH PRN (20:21)
[2017-06-07] MEDS ORDERED: HYDROmorphone 1 MG/ML Syringe ONE (20:25)
[2017-06-07] MEDS ORDERED: HYDROmorphone 1 MG/ML Syringe IVPUSH PRN (20:27)
[2017-06-07 20:45] LABS: CHLORIDE,CL 105 mmol/L (98-110); SODIUM,NA 139 mmol/L (136-146)
[2017-06-07] MEDS ORDERED: Ketorolac 30 MG/ML SDV IVPUSH ONE (21:52)
[2017-06-07 22:35] VITALS: BP 126/75
== END 2017-06-07 22:30 | disposition home or self-care (01) ==
LOC: MW.ED 19:26
DX: N80.9 Endometriosis, unspecified (principal); E11.9 Type 2 diabetes mellitus without complications; Z79.84 Long term (current) use of oral hypoglycemic drugs; Z87.442 Personal history of urinary calculi
CPT/HCPCS: 36415; 80053; 81001; 81025; 85025; 96361; 96374; 96375; 99284; J1170; J1885; J2405; J7040; 99283

== ENCOUNTER 2017-06-09 01:47 | Emergency (ER) | payer MEDICAID ==
[2017-06-09 01:56] VITALS: BP 130/85
[2017-06-09] MEDS ORDERED: diphenhydrAMINE 50 MG/ML SDV IVPUSH ONE (01:58)
[2017-06-09] MEDS ORDERED: methylPREDNISolone Sodium Succinate 125 MG/2 ML SDV IVPUSH ONE (01:58)
[2017-06-09] MEDS ORDERED: Famotidine 20 MG Tab PO ONE (01:58)
--- NOTE | 2017-06-09 02:01 | EDM.PDOC ---
ED HPI GENERAL MEDICAL PROBLEM - General Chief Complaint: Allergic Reaction Stated Complaint: RASH Time Seen by Provider: 06/09/17 01:59 Source of Information: Reports: Patient - History of Present Illness INITIAL COMMENTS - FREE TEXT/NARRATIVE: HISTORY AND PHYSICAL: History of present illness: [Patient presents with high use she relates to possibly a dose of Dilaudid she received here in the emergency room for abdominal pain 24 hours prior, she denies any new foods detergents etc. she does certainly have some hives on her back and forearms. She states she feels as if she has lip swelling tongue swelling and difficulty breathing however there is no distress she is able to speak clearly in full sentences no retractions no stridor no visible lip swelling tongue swelling or oral pharyngeal edema. Hives again tonight after work at home and also exposure the patient is aware of outside of a dose of Dilaudid and Toradol here in the emergency room 24 hours ago she is taking portal many times hence she attributes this reaction to possibly the Dilaudid that she received 24 hours ago No fever nausea vomiting chills sweats no chest pain headache dizziness or palpitation no bowel or urine symptoms ] Review of systems: As per history of present illness and below otherwise all systems reviewed and negative. Past medical history: As per history of present illness and as reviewed below otherwise noncontributory. Surgical history: As per history of present illness and as reviewed below otherwise noncontributory. Social history: No reported history of drug or alcohol abuse. Family history: As per history of present illness and as reviewed below otherwise noncontributory. Physical exam: HEENT: Atraumatic, normocephalic, pupils reactive, negative for conjunctival pallor or scleral icterus, mucous membranes moist, throat clear, neck supple, nontender, trachea midline. No lip swelling tongue swelling or oral pharyngeal edema Lungs: Clear to auscultation, breath sounds equal bilaterally, chest nontender. Heart: S1S2, regular, negative for clicks, rubs, or JVD. Abdomen: Soft, nondistended, nontender. Negative for masses or hepatosplenomegaly. Negative for costovertebral tenderness. Pelvis: Stable nontender. 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: Deferred. Rectal: Deferred. Extremities: Atraumatic, negative for cords or calf pain. Neurovascular unremarkable. Neuro: Awake, alert, oriented. Cranial nerves II through XII unremarkable. Cerebellum unremarkable. Motor and sensory unremarkable throughout. Exam nonfocal. Skin urticarial rash noted on back and forearms unknown etiology Diagnostics: [EKG Chest 1 view ] Therapeutics: []Medrol 125 mg IV Benadryl 50 mg IV Famotidine 20 mg by mouth EpiPen Medrol Dosepak Benadryl Zantac Follow-up primary care consider allergy testing Return if symptoms persist or worsen Impression: [Urticarial rash--unknown etiology] Definitive disposition and diagnosis as appropriate pending reevaluation and review of above. chest/throat Pain Score (Numeric/FACES): 10 - Related Data Allergies Allergy/AdvReac Type Severity Reaction Status Date / Time hydromorphone [From Dilaudid] Allergy Hives Verified 06/09/17 02:01 Home Meds: Home Meds SUMAtriptan Succinate [Imitrex] 100 mg PO ASDIRECTED PRN 11/25/16 [History] metFORMIN HCl [Metformin HCl] 1,000 mg PO BID 01/27/17 [History] Ketorolac [Toradol] 10 mg PO ASDIRECTED PRN 02/23/17 [History] oxyCODONE HCl/Acetaminophen [Percocet 5-325 mg Tablet] 1 tab PO Q6H PRN [History] Past Medical History HEENT History: Reports: None Cardiovascular History: Reports: None Respiratory History: Reports: None Gastrointestinal History: Reports: Cholelithiasis 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 History: Reports: Hydronephrosis, 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 Calculus 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: Reports: PID, Musculoskeletal History: Reports: Arthritis, Back Pain, Chronic Neurological History: Reports: Migraines Psychiatric History: Reports: None Endocrine/Metabolic History: Reports: Diabetes, Type II, Obesity/BMI 30+ Hematologic History: Reports: None Immunologic History: Reports: None Oncologic (Cancer) History: Reports: None Dermatologic History: Reports: None - Infectious Disease History Infectious Disease History: Reports: Chicken Pox - Past Surgical History Head Surgeries/Procedures: Reports: None GI Surgical History: Reports: Cholecystectomy, Colonoscopy Female Surgical History: Reports: Kidney stone extraction Social & Family History - Family History Family Medical History: Noncontributory - Tobacco Use Smoking Status *Q: Never Smoker Second Hand Smoke Exposure: No - Caffeine Use Caffeine Use: Reports: Soda - Recreational Drug Use Recreational Drug Use: No Drug Use in Last 12 Months: No ED ROS ALLERGIC REACTION - Review of Systems Review Of Systems: ROS reveals no pertinent complaints other than HPI. ED EXAM GENERAL NO PERIP PULSE - Physical Exam Exam: See Below Course - Vital Signs Last Recorded V/S: Last Vital Signs Temp 98 F 06/09/17 01:47 Pulse 78 06/09/17 01:47 Resp 24 H 06/09/17 01:47 BP 130/85 06/09/17 01:47 Pulse Ox 97 06/09/17 01:47 - Orders/Labs/Meds Orders: Active Orders 24 hr Category Date Time Status EKG Documentation Completion [RC] STAT Care 06/09/17 01:58 Active Chest 1V Frontal [CR] Stat Exams 06/09/17 01:58 Taken Meds: Medications Discontinued Medications Generic Name Dose Route Start Last Admin Trade Name Francy PRN Reason Stop Dose Admin Diphenhydramine HCl 50 mg 06/09/17 01:58 06/09/17 02:14 Benadryl IVPUSH 06/09/17 01:59 50 mg ONETIME ONE Administration Famotidine 20 mg 06/09/17 01:58 06/09/17 02:14 Pepcid PO 06/09/17 01:59 20 mg ONETIME ONE Administration Methylprednisolone Sodium Succinate 125 mg 06/09/17 01:58 06/09/17 02:14 Solu-Medrol IVPUSH 06/09/17 01:59 125 mg ONETIME ONE Administration Departure - Departure Time of Disposition: 03:14 Disposition: Home, Self-Care 01 Condition: Good Clinical Impression: Urticarial rash, Allergic reaction - Discharge Information Referrals: PCP,None [Primary Care Provider] - Additional Instructions: Benadryl up to 50 mg by mouth every 6 hours as needed Zantac 150 mg by mouth twice a day as needed Medication as prescribed Return if symptoms persist or worsen Follow-up with primary care in 2 weeks sooner as needed consider allergy testing with your primary care [facility] [address] [place] [address] The following information is given to patients seen in the emergency department who are being discharged to home. This information is to outline your options for follow-up care. We provide all patients seen in our emergency department with a follow-up referral. The need for follow-up, as well as the timing and circumstances, are variable depending upon the specifics of your emergency department visit. If you don't have a primary care physician on staff, we will provide you with a referral. We always advise you to contact your personal physician following an emergency department visit to inform them of the circumstance of the visit and for follow-up with them and/or the need for any referrals to a consulting specialist. The emergency department will also refer you to a specialist when appropriate. This referral assures that you have the opportunity for follow-up care with a specialist. All of these measure are taken in an effort to provide you with optimal care, which includes your follow-up. Under all circumstances we always encourage you to contact your private physician who remains a resource for coordinating your care. When calling for follow-up care, please make the office aware that this follow-up is from your recent emergency room visit. If for any reason you are refused follow-up, please contact the [facility] emergency department at and asked to speak to the emergency department charge nurse. - My Orders Last 24 Hours: My Active Orders 06/09/17 01:58 EKG Documentation Completion [RC] STAT Chest 1V Frontal [CR] Stat - Assessment/Plan Last 24 Hours: My Active Orders 06/09/17 01:58 EKG Documentation Completion [RC] STAT Chest 1V Frontal [CR] Stat
--- NOTE | 2017-06-09 14:43 | CR ---
EXAM DATE: 06/09/17 PATIENT'S AGE: 41 Patient: MONIKA VELA Facility: [place], [place] Site . Site : [id number] Study: XRay Chest [id number]/[id number] 2:35:41 AM Ordering Physician: Saúl Hedrick Final Report: INDICATION: Cough, pain in mid-chest TECHNIQUE: Chest 1 view. COMPARISON: None. FINDINGS: Cardiovascular and mediastinum: Heart size and vasculature are normal in caliber and appearance. Mediastinum is within normal limits. Lungs and pleural space: Lungs are clear. No sign of infiltrate or mass. No sign of pleural effusion. No pneumothorax. Bones and soft tissues: No significant findings. IMPRESSION: Unremarkable chest. Dictated by: Leonardo Monsalve MD @ 06/09/2017 02:44:14 (Electronic Signature) Report Signed by Proxy. [facility], [place]HATTANPriscila
== END 2017-06-09 03:25 | disposition home or self-care (01) ==
LOC: MW.ED 01:47
DX: L50.0 Allergic urticaria (principal); E11.9 Type 2 diabetes mellitus without complications; Z88.5 Allergy status to narcotic agent
CPT/HCPCS: 71045; 93005; 96374; 96375; 99285; A9270; J1200; J2930; 99283

== ENCOUNTER 2017-06-11 11:49 | Emergency (ER) | payer MEDICAID ==
[2017-06-11] MEDS ORDERED: diphenhydrAMINE 50 MG/ML SDV IM ONE (12:04)
[2017-06-11] MEDS ORDERED: Cetirizine 10 MG Tab PO ONE (12:05)
[2017-06-11] MEDS ORDERED: prednisoLONE Soln 15 MG/5 ML UD Cup PO ONE (12:05)
--- NOTE | 2017-06-11 12:08 | EDM.PDOC ---
ED HPI GENERAL MEDICAL PROBLEM - General Chief Complaint: Allergic Reaction Stated Complaint: THROAT CLOSING AND BREAKOUT OVER BODY Time Seen by Provider: 06/11/17 12:06 Source of Information: Reports: Patient History Limitations: Reports: No Limitations - History of Present Illness INITIAL COMMENTS - FREE TEXT/NARRATIVE: HISTORY AND PHYSICAL: []41-year-old female presenting with continued oxygen and waning of her allergic reaction History of Present Illness: []Had some scratchiness to her throat now Did not take her steroids today Review of Systems: As per history of present illness and below otherwise all systems reviewed and negative. Past medical history: As per history of present illness and as reviewed below otherwise noncontributory. Surgical history: As per history of present illness and as reviewed below otherwise noncontributory. Social history: No reported history of drug or alcohol abuse. Family history: As per history of present illness and as reviewed below otherwise noncontributory. Physical exam: Alert and oriented female answering questions appropriately in full sentences without any shortness of breath. Good Affect and eye contact. Skin wheals well to her back and arms and chest. Periodic in nature. The scratching HEENT: Atraumatic, normocehpalic, pupils reactive, negative for conjunctival pallor or scleral icterus, mucous membranes moist, throat clear, neck supple, nontender, trachea midline. Lungs: Clear to auscultation, breath sounds equal bilaterally, chest non tender. Heart: S1S2, regular, negative for clicks, rubs, or JVD. Abdomen: Soft, nondistended, nontender. Negative for masses or hepatossplenmegaly. Negative for costovertebral tenderness. Pelvis: Stable nontender. 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: Deferred. Rectal: Deferred Extremities: Atraumatic, negative for cords or calf pain. Neurovascular unremarkable. Neuro: Awake, alert, oriented. Cranial nerves II through XII unremarkable. Cerebellum unremarkable. Motor and sensory unremarkable throughout. Exam nonfocal. Patient is improved with the medications were given a prolonged period time his throat is not scratchy. speaking has improved Mild erythema. His has resolved at this time Diagnostics: [] Therapeutics: [Benadryl IM Prednisolone syrup Zyrtec by mouth] Impression: [Allergic reaction] Plan: [Discharged to home Zyrtec daily Pepcid [id number] medication up to 4 times daily to help with the itching Continue with the medication such were given in the emergency department previously Benadryl to [id number] capsules every 4 hours Note given for work today] Definitive disposition and diagnosis as appropriate pending reevaluation and review of above. Onset: Gradual Duration: Day(s):, Waxing/Waning stomach Pain Score (Numeric/FACES): 7 - Related Data Allergies Allergy/AdvReac Type Severity Reaction Status Date / Time hydromorphone [From Dilaudid] Allergy Hives Verified 06/09/17 02:01 Home Meds: Home Meds SUMAtriptan Succinate [Imitrex] 100 mg PO ASDIRECTED PRN 11/25/16 [History] metFORMIN HCl [Metformin HCl] 1,000 mg PO BID 01/27/17 [History] Ondansetron [Zofran ODT] 4 mg PO Q6H PRN #12 tab.dis 06/11/17 [Rx] Past Medical History HEENT History: Reports: None Cardiovascular History: Reports: None Respiratory History: Reports: None Gastrointestinal History: Reports: Cholelithiasis 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 History: Reports: Hydronephrosis, Renal Calculus 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, Musculoskeletal History: Reports: Arthritis, Back Pain, Chronic Neurological History: Reports: Migraines Psychiatric History: Reports: None Endocrine/Metabolic History: Reports: Diabetes, Type II, Obesity/BMI 30+ Hematologic History: Reports: None Immunologic History: Reports: None Oncologic (Cancer) History: Reports: None Dermatologic History: Reports: None - Infectious Disease History Infectious Disease History: Reports: Chicken Pox - Past Surgical History Head Surgeries/Procedures: Reports: None GI Surgical History: Reports: Cholecystectomy, Colonoscopy Female Surgical History: Reports: Kidney stone extraction Social & Family History - Family History Family Medical History: Noncontributory - Tobacco Use Smoking Status *Q: Never Smoker Second Hand Smoke Exposure: No - Caffeine Use Caffeine Use: Reports: Soda - Recreational Drug Use Recreational Drug Use: No Drug Use in Last 12 Months: No ED ROS ALLERGIC REACTION - Review of Systems Review Of Systems: ROS reveals no pertinent complaints other than HPI. ED EXAM GENERAL NO PERIP PULSE - Physical Exam Exam: See Below (see dictation) Course - Vital Signs Last Recorded V/S: Last Vital Signs Temp 35.5 C 06/11/17 11:56 Pulse 90 06/11/17 11:56 Resp 18 06/11/17 11:56 BP 126/76 06/11/17 11:56 Pulse Ox 95 06/11/17 11:56 - Orders/Labs/Meds Meds: Medications Discontinued Medications Generic Name Dose Route Start Last Admin Trade Name Freq PRN Reason Stop Dose Admin Cetirizine HCl 10 mg 06/11/17 12:05 06/11/17 12:22 Zyrtec PO 06/11/17 12:06 10 mg ONETIME ONE Administration Diphenhydramine HCl 50 mg 06/11/17 12:04 06/11/17 12:22 Benadryl IM 06/11/17 12:05 50 mg ONETIME ONE Administration Prednisolone 30 mg 06/11/17 12:05 06/11/17 12:21 Orapred 15 Mg/5ml Soln PO 06/11/17 12:06 30 mg ONETIME ONE Administration Departure - Departure Time of Disposition: 13:10 Disposition: Home, Self-Care 01 Condition: Good Clinical Impression: Allergic reaction Qualifiers: Encounter type: sequela Qualified Code(s): T78.40XS - Allergy, unspecified, sequela - Discharge Information Prescriptions: Ondansetron [Zofran ODT] 4 mg PO Q6H PRN #12 tab.dis PRN Reason: Nausea Referrals: Virginia Stone DO [Primary Care Provider] - Additional Instructions: The following information is given to patients seen in the emergency department who are being discharged to home. This information is to outline your options for follow-up care. We provide all patients seen in our emergency department with a follow-up referral. The need for follow-up, as well as the timing and circumstances, are variable depending upon the specifics of your emergency department visit. If you don't have a primary care physician on staff, we will provide you with a referral. We always advise you to contact your personal physician following an emergency department visit to inform them of the circumstance of the visit and for follow-up with them and/or the need for any referrals to a consulting specialist. The emergency department will also refer you to a specialist when appropriate. This referral assures that you have the opportunity for followup care with a specialist. All of these measure are taken in an effort to provide you with optimal care, which includes your followup. Under all circumstances we always encourage you to contact your private physician who remains a resource for coordinating your care. When calling for followup care, please make the office aware that this follow-up is from your recent emergency room visit. If for any reason you are refused follow-up, please contact the [facility] emergency department at and asked to speak to the emergency department charge nurse. You have been found to have an allergic reaction Many times we do not find the cause of this allergy You have been treated with Benadryl Steroids Zyrtec He may continue with these as you have been given them Add Pepcid [id number] medication up to 4 times daily as needed for itching Follow-up with your primary care provider next week Note is been written to be off work today
[2017-06-11 13:26] VITALS: BP 114/60
== END 2017-06-11 13:22 | disposition home or self-care (01) ==
LOC: MW.ED 11:49
DX: T78.40XS Allergy, unspecified, sequela (principal); E11.9 Type 2 diabetes mellitus without complications; Z79.84 Long term (current) use of oral hypoglycemic drugs; Z88.5 Allergy status to narcotic agent
CPT/HCPCS: 96372; 99283; A9270; J1200; 99282

== ENCOUNTER 2024-09-27 12:36 | Emergency (ER) | payer BC, MEDICAID ==
[2024-09-27 14:05] LABS: BASOPHILS ABSOLUTE AUTO 0.04 K/uL (0.00-0.20); BASOPHILS PERCENT AUTO 0.5 % (0.0-1.0); EOSINOPHILS ABSOLUTE AUTO 0.12 K/uL (0.00-0.45); EOSINOPHILS PERCENT AUTO 1.6 % (0.0-6.0); HEMOGLOBIN 14.3 g/dL (12.0-16.0); IMMATURE GRAN ABSOLUTE AUTO 0.02 K/uL (0.00-0.05); IMMATURE GRAN PERCENT AUTO 0.3 % (0.0-0.4); LYMPHOCYTES ABSOLUTE AUTO 1.81 K/uL (1.00-4.80); LYMPHOCYTES PERCENT AUTO 23.9 % (24.0-44.0); MEAN CORPUSCULAR HEMOGLOBIN 28.8 pg (28.0-32.0); MEAN CORPUSCULAR VOLUME 84.5 fL (83.0-99.0); MEAN PLATELET VOLUME 9.9 fL (9.4-12.3); MONOCYTES ABSOLUTE AUTO 0.44 K/uL (0.00-0.80); MONOCYTES PERCENT AUTO 5.8 % (0.0-8.0); NEUTROPHILS ABSOLUTE AUTO 5.14 K/uL (1.80-7.70); NEUTROPHILS PERCENT AUTO 67.9 % (41.0-71.0); PLATELET COUNT,PLT 242 K/uL (150-400); RED BLOOD CELL COUNT 4.97 M/uL (4.10-5.30); WHITE BLOOD CELL COUNT,WBC 7.57 K/uL (3.9-11.3)
[2024-09-27 14:38] LABS: BILIRUBIN TOTAL 0.3 mg/dL (0.2-1.0); CALCIUM 9.1 mg/dL (8.5-10.1); CARBON DIOXIDE,CO2 26.5 mmol/L (21.0-32.0); EST CRCL DRUG DOSING (CG) 60.56 mL/min; POTASSIUM,K 4.7 mmol/L (3.5-5.1)
[2024-09-27 15:11] LABS: APPEARANCE,URINE CLEAR; BILIRUBIN,URINE NEGATIVE (NEGATIVE); COLOR,URINE YELLOW; GLUCOSE,URINE NEGATIVE (NEGATIVE); KETONES,URINE NEGATIVE (NEGATIVE); LEUKOCYTE ESTERASE,URINE NEGATIVE (NEGATIVE); NITRITE,URINE NEGATIVE (NEGATIVE); OCCULT BLOOD,URINE NEGATIVE (NEGATIVE); PROTEIN,URINE NEGATIVE (NEGATIVE); UROBILINOGEN,URINE 0.2 EU/dL (<2.0)
[2024-09-27 15:38] LABS: RBC,URINE 0-1 (0-2/HPF)
[2024-09-27 15:39] LABS: BACTERIA,URINE 1+ (NEGATIVE); EPITHELIAL CELLS,URINE FEW (NONE-FEW); WBC,URINE 0-3 (0-5/HPF); YEAST,URINE RARE
[2024-09-27] MEDS: Dicyclomine 10 MG Cap PO ONE (18:00)
[2024-09-27] MEDS: metroNIDAZOLE 250 MG Tab PO ONE (18:00)
[2024-09-27] MEDS: Ciprofloxacin 500 MG Tab PO ONE (18:00)
[2024-09-27 18:06] VITALS: BP 118/83; PULSE 79
== END 2024-09-27 18:26 | disposition home or self-care (01) ==
LOC: MW.ED 12:36
DX: K52.9 Noninfective gastroenteritis and colitis, unspecified (principal); E11.9 Type 2 diabetes mellitus without complications; Z88.5 Allergy status to narcotic agent; Z79.85 Long-term (current) use of injectable non-insulin antidiabetic drugs; Z90.49 Acquired absence of other specified parts of digestive tract
CPT/HCPCS: 36415; 76705; 80053; 81001; 83690; 85025; 99284; A9270; 99283